=== PATIENT | female | born 1955 | race Caucasian/White ===

== ENCOUNTER 2018-01-31 23:09 | Inpatient (IN) | payer OTHER ==
[~2018-01-31] VITALS: Ht 154.9 cm; Wt 105.4 kg
[~2018-01-31 23:09] MED LIST: AUGMENTIN 875-1 EACH PO
--- NOTE | 2018-01-31 23:47 | ED GI/GU/ABDOMINAL COMPLAINT ---
History of Present Illness General Chief Complaint: Abdominal Pain/Flank Pain Stated Complaint: RIGHT SIDE ABD PAIN, NAUSEA PER PT Source: patient Exam Limitations: no limitations Vital Signs & Intake/Output Vital Signs & Intake/Output Vital Signs Date Time Temp Pulse Resp B/P B/P Pulse O2 O2 Flow FiO2 Mean Ox Delivery Rate 02/01 0319 98.1 72 20 129/59 93 Room Air 01/31 2356 99.1 82 16 160/80 96 ED Intake and Output 02/01 0000 01/31 1200 Intake Total Output Total Balance Patient 250 lb Weight Weight Reported by Patient Measurement Method Allergies Coded Allergies: Sulfa (Sulfonamide Antibiotics) (Intermediate, HIVES 02/22/16) fluticasone (From ADVAIR DISKUS) (Intermediate, PNEUMONIA 02/22/16) lactose (Intermediate, GI UPSET 02/22/16) salmeterol (From ADVAIR DISKUS) (Intermediate, PNEUMONIA 02/22/16) wheat (Intermediate, GI UPSET 02/22/16) pollen extracts (Mild, SINUS ISSUES 02/22/16) Reconcile Medications Amoxicillin/Potassium Clav (Augmentin 875-125 Tablet) 1 EACH TABLET 1 TAB PO BID SINUSITIS Triage Nurses Notes Reviewed? yes ? n Is pt currently ? No Onset: Gradual Duration: day(s): Quality/Severity: dullness, fullness Location: right lower quadrant Radiation: no radiation Activities at Onset: none Prior Abdominal Problems: none Modifying Factors: Worsens With: movement, palpation. Associated Symptoms: nausea/vomiting HPI: 62 yo woman h/o cholecystectomy presents with right lower quadrant pain that began earlier today. "It feels sharp and worse when I press on it... I haven't been able to drink all day... Tonight, I felt warm... I'm worried it might be my appendix." She is otherwise well. Past History Travel History Traveled to [place] past 21 day No Medical History Any Pertinent Medical History? 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 No Review of Systems Review of Systems Constitutional: Reports: no symptoms. EENTM: Reports: no symptoms. Respiratory: Reports: no symptoms. Cardiovascular: Reports: no symptoms. GI: Reports: no symptoms. Genitourinary: Reports: no symptoms. Musculoskeletal: Reports: no symptoms. Skin: Reports: no symptoms. Neurological/Psychological: Reports: no symptoms. Hematologic/Endocrine: Reports: no symptoms. Immunologic/Allergic: Reports: no symptoms. All Other Systems: Reviewed and Negative Physical Exam Physical Exam Gastrointestinal: see below Comments: Physical Exam Physical Exam General Appearance: well developed/nourished, no apparent distress Head: atraumatic, normal appearance Eyes: Bilateral: normal appearance. Ears, Nose, Throat: normal pharynx, normal ENT inspection Neck: normal inspection, supple, full range of motion Respiratory: normal breath sounds, chest non-tender, no respiratory distress, quiet respiration, lungs clear Cardiovascular: regular rate/rhythm Gastrointestinal: normal bowel sounds, soft, mild-moderate right lower quadrant tenderness to palpation. no kaur's sign. no rebound, guarding, organomegaly. Back: normal inspection, normal range of motion Extremities: normal inspection, normal capillary refill, normal range of motion, no edema Neurologic/Psych: no motor/sensory deficits, awake, alert, oriented x 3 Skin: intact, normal color, warm/dry Core Measures ACS in differential dx? No Sepsis Present: No Sepsis Focused Exam Completed? No Progress Differential Diagnosis: UTI/pyelo, diverticulitis vs other. Plan of Care: Orders Procedure Date/time Status Nothing by Mouth 02/02 B Active CBC WITHOUT DIFFERENTIAL 02/02 06 Active BASIC ELECTROLYTES PLUS BUN&CR 02/02 0600 Active Nothing by Mouth 02/01 B Active Pathway - chart 02/01 0200 Active Patient Data 02/01 0200 Active Code Status 02/01 0200 Active Saline Lock 02/01 0146 Active Misc Message 02/01 0146 Active ED Holding Orders 02/01 0146 Active Admit to inpatient 02/01 0146 Active Vital Signs 02/01 0146 Active Code Status 02/01 0146 Complete INCENTIVE SPIROMETRY TRX (GEN) 02/01 UNK Active Admit to inpatient 02/01 UNK Active VTE Mechanical Prophylaxis 02/01 UNK Active Vital Signs 02/01 UNK Active Intake & Output 02/01 UNK Active Activity/Ambulation 02/01 UNK Active URINALYSIS 07/17 2358 Complete TROPONIN LEVEL 01/31 2317 Complete LIPASE 01/31 2317 Complete HEPATIC FUNCTION PANEL 01/31 2317 Complete CBC WITHOUT DIFFERENTIAL 01/31 2317 Complete BASIC METABOLIC PANEL 01/31 2317 Complete AMYLASE 01/31 2317 Complete EKG 01/31 2317 Active Current Medications Sig/Arlen Start time Last Medication Dose Stop Time Status Admin Pantoprazole Sodium 40 MG DAILY 02/01 0900 AC (Protonix) Ampicillin Sodium/ 3,000 MG Q6 02/01 06 AC Sulbactam Sodium (Unasyn) Sodium Chloride 100 ML (Normal Saline 0.9%) Heparin Sodium 5,000 UNIT Q8 02/01 06 AC (Porcine) Morphine Sulfate 2 MG Q3P PRN 02/01 0245 AC (MORPHINE SULFATE) Acetaminophen 1,000 MG Q8P PRN 02/01 0200 AC (Tylenol) Lactated Ringer's 1,000 ML Q8H 02/01 0200 AC (Lactated Ringers) Morphine Sulfate 4 MG Q3P PRN 02/01 0200 AC (MORPHINE SULFATE) Ondansetron HCl 4 MG Q6P PRN 02/01 0200 AC (Zofran) Laboratory Tests 02/01/18 0035: Urinalysis MOD H, Urine Color YEL, Urine Clarity HAZY H, Urine pH 6.5, Ur Specific [place] 1.020, Urine Protein 30 H, Urine Ketones TRACE H, Urine Nitrite NEG, Urine Bilirubin NEG, Urine Urobilinogen 1.0, Ur Leukocyte Esterase SMALL H, Ur Microscopic SEDIMENT EXAMINED, Urine RBC 1-3, Urine WBC 3-5 H, Ur Epithelial Cells MOD H, Urine Bacteria MOD H, Urine Hemoglobin SMALL H, Urine Glucose NEG 02/01/18 0032: Anion Gap 11, Estimated GFR > 60, BUN/Creatinine Ratio 21.3, Glucose 115 H, Calcium 9.0, Total Bilirubin 2.1 H, Direct Bilirubin 0, AST 19, ALT 32, Alkaline Phosphatase 101, Troponin I < 0.01, Total Protein 7.9, Albumin 4.3, Amylase 52, Lipase 65, CBC w Diff NO MAN DIFF REQ, RBC 4.66, MCV 82.4, MCH 28.0, MCHC 34.0, RDW 15.9 H, MPV 7.1 L, Gran % 85.4 H, Lymphocytes % 8.1 L, Monocytes % 5.7, Eosinophils % 0.6, Basophils % 0.2, Absolute Granulocytes 12.5 H, Absolute Lymphocytes 1.2, Absolute Monocytes 0.8 H, Absolute Eosinophils 0.1 , Absolute Basophils 0 01/31/18 3667: D-Dimer High Sensitivty Cancelled Diagnostic Imaging: Viewed by Me: CT Scan. Discussed w/RAD: CT Scan. Radiology Impression: PATIENT: EDDIE HUITRON PRESENT AGE: 62 PATIENT ACCOUNT NO: [id number] : 56 LOCATION: [facility] ORDERING PHYSICIAN: Aba Carrasquillo MD SERVICE DATE: 01/31/18 EXAM TYPE: CAT - CT ABD & PELVIS W/O IV CONTRAS EXAMINATION: CT ABDOMEN AND PELVIS WITHOUT CONTRAST CLINICAL INFORMATION: Right lower quadrant pain COMPARISON: 06/14/2012 TECHNIQUE: Multidetector volumetric imaging was performed from the superior aspect of the liver through the pubic symphysis. Sagittal and coronal reformatted images were obtained on the technologist's workstation. DLP: 892.51 mGy-cm FINDINGS: LUNG BASES: The visualized lung bases are unremarkable. LIVER, GALLBLADDER, AND BILIARY TREE: The liver is normal in size, shape, and attenuation. No focal hepatic lesion or biliary ductal dilatation is present. Patient appears status post cholecystectomy. PANCREAS: Unremarkable. SPLEEN: Unremarkable. ADRENAL GLANDS: Unremarkable. KIDNEYS AND URETERS: The kidneys are normal in size, shape, and attenuation. There is a punctate right mid renal calculus. No hydronephrosis, hydroureter, or obstructing calculi seen. No perinephric stranding. BLADDER: Unremarkable. GASTROINTESTINAL TRACT: There is focal pericolonic inflammation in the ascending colon in the setting of diverticula, most suspicious for acute diverticulitis. There may be a few punctate foci of free air in this region from microperforation. No discrete abscess is seen. No evidence of bowel obstruction. The appendix is partially distended with gas, and there are no findings to suggest acute appendicitis. No free fluid is identified. ABDOMINAL WALL: No significant hernia is appreciated. LYMPH NODES: Normal. VASCULAR: There is mild scattered vascular calcification. PELVIC VISCERA: Unremarkable. OSSEOUS STRUCTURES: There are scattered degenerative changes in the spine. IMPRESSION: 1. Diverticulitis of the ascending colon. A few punctate foci of gas in this region may be extraluminal from microperforation. 2. Punctate right renal calculus without hydronephrosis. DICTATED BY: Franco Mac MD DATE/TIME DICTATED:02/01/1832 HEALTH COACH:WANDY DATE/TIME TRANSCRIBED:02/01/1832 CONFIDENTIAL, DO NOT COPY WITHOUT APPROPRIATE AUTHORIZATION. <Electronically signed in Other Vendor System> SIGNED BY: Franco Mac MD 02/01/1845 Initial ED EKG: sinus, nonspecific st changes, no significant change from prior. Departure Departure Disposition: STILL A PATIENT Condition: Stable Clinical Impression Primary Impression: Diverticulitis of colon with perforation Referrals: Marlen SOTO,Darvin Brian (PCP/Family) Departure Forms: Customer Survey General Discharge Information
--- NOTE | 2018-02-01 00:46 | CT SCAN REPORT ---
EXAMINATION: CT ABDOMEN AND PELVIS WITHOUT CONTRAST CLINICAL INFORMATION: Right lower quadrant pain COMPARISON: 06/14/2012 TECHNIQUE: Multidetector volumetric imaging was performed from the superior aspect of the liver through the pubic symphysis. Sagittal and coronal reformatted images were obtained on the technologist's workstation. DLP: 892.51 mGy-cm FINDINGS: LUNG BASES: The visualized lung bases are unremarkable. LIVER, GALLBLADDER, AND BILIARY TREE: The liver is normal in size, shape, and attenuation. No focal hepatic lesion or biliary ductal dilatation is present. Patient appears status post cholecystectomy. PANCREAS: Unremarkable. SPLEEN: Unremarkable. ADRENAL GLANDS: Unremarkable. KIDNEYS AND URETERS: The kidneys are normal in size, shape, and attenuation. There is a punctate right mid renal calculus. No hydronephrosis, hydroureter, or obstructing calculi seen. No perinephric stranding. BLADDER: Unremarkable. GASTROINTESTINAL TRACT: There is focal pericolonic inflammation in the ascending colon in the setting of diverticula, most suspicious for acute diverticulitis. There may be a few punctate foci of free air in this region from microperforation. No discrete abscess is seen. No evidence of bowel obstruction. The appendix is partially distended with gas, and there are no findings to suggest acute appendicitis. No free fluid is identified. ABDOMINAL WALL: No significant hernia is appreciated. LYMPH NODES: Normal. VASCULAR: There is mild scattered vascular calcification. PELVIC VISCERA: Unremarkable. OSSEOUS STRUCTURES: There are scattered degenerative changes in the spine. IMPRESSION: 1. Diverticulitis of the ascending colon. A few punctate foci of gas in this region may be extraluminal from microperforation. 2. Punctate right renal calculus without hydronephrosis.
[2018-02-01 00:48] LABS: ABSOLUTE BASOPHIL COUNT 0 /CUMM (0.0-0.2); ABSOLUTE EOSINOPHIL COUNT 0.1 /CUMM (0.0-0.7); ABSOLUTE GRANULOCYTE CT 12.5 /CUMM (1.4-6.5); ABSOLUTE LYMPH COUNT 1.2 /CUMM (1.2-3.4); ABSOLUTE MONOCYTE COUNT 0.8 /CUMM (0.10-0.60); BASOPHIL % 0.2 % (0.0-2.0); EOSINOPHIL % 0.6 % (0-5); HEMATOCRIT 38.4 % (37-47); MEAN CORPUSCULAR VOLUME 82.4 FL (81.0-99.0); MEAN PLATELET VOLUME 7.1 FL (7.4-10.4); PLATELET COUNT 199 /CUMM (130-400); RBC DISTRIBUTION WIDTH 15.9 % (11.5-14.5); RED BLOOD CELL CT 4.66 /CUMM (4.20-5.40); WHITE BLOOD CELL COUNT 14.6 /CUMM (4.8-10.8)
[2018-02-01 01:20] LABS: GRANULOCYTE % 85.4 % (42.2-75.2)
--- NOTE | 2018-02-01 02:21 | History & Physical ---
Ashanti Aldridge 02/01/18 0221: General Information and HPI Source of Information: patient Exam Limitations: no limitations History of Present Illness: This is a 62-year-old female with a past medical history significant for asthma, psoriasis, mitral valve prolapse, hypertension, hypothyroidism, and venous insufficiency who presents to the emergency department with a chief complaint of right mid quadrant abdominal pain. Patient reports he she's been more fatigued than usual over the last 48 hours and then started with abdominal pain yesterday which increased over the course the day and she then developed fevers. Upon talking to her coworker she suggested she get evaluated as she had had similar symptoms with appendicitis. Patient reports fevers, chills and nausea, and denies vomiting, constipation, diarrhea, sick contacts, or recent travel. She reports that she might have had similar symptoms in the past as she's had pain in this area previously but it always spontaneously resolved. Allergies/Medications Allergies: Coded Allergies: Sulfa (Sulfonamide Antibiotics) (Intermediate, HIVES 02/22/16) fluticasone (From ADVAIR DISKUS) (Intermediate, PNEUMONIA 02/22/16) lactose (Intermediate, GI UPSET 02/22/16) salmeterol (From ADVAIR DISKUS) (Intermediate, PNEUMONIA 02/22/16) wheat (Intermediate, GI UPSET 02/22/16) pollen extracts (Mild, SINUS ISSUES 02/22/16) Past History Travel History Traveled to [place] past 21 day No Medical History Neurological: NONE EENT: NONE Cardiovascular: hypertension, MVP Respiratory: asthma Gastrointestinal: NONE Hepatic: FATTY LIVER Renal: NONE Musculoskeletal: PSORIASIS ?ARTHRITIS Psychiatric: NONE Endocrine: hypothyroidism Blood Disorders: NONE Cancer(s): NONE 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 Review of Systems Review of Systems Constitutional: Reports: see HPI. Exam & Diagnostic Data Last 24 Hrs of Vital Signs/I&O Vital Signs Date Time Temp Pulse Resp B/P B/P Pulse O2 O2 Flow FiO2 Mean Ox Delivery Rate 01/31 2356 99.1 82 16 160/80 96 Intake & Output 02/01 0800 02/01 0000 01/31 1600 Intake Total Output Total Balance Patient 250 lb Weight Weight Reported by Patient Measurement Method Physical Exam General Appearance Alert, No Acute Distress Abdomen Soft, No Masses, TTP in the right mid quadrant, w/o R/G Extremities No Clubbing, No Cyanosis, No Edema Last 24 Hrs of Labs/Eduin: Laboratory Tests 02/01/18 0035: Urinalysis MOD H, Urine Color YEL, Urine Clarity HAZY H, Urine pH 6.5, Ur Specific [place] 1.020, Urine Protein 30 H, Urine Ketones TRACE H, Urine Nitrite NEG, Urine Bilirubin NEG, Urine Urobilinogen 1.0, Ur Leukocyte Esterase SMALL H, Ur Microscopic SEDIMENT EXAMINED, Urine RBC 1-3, Urine WBC 3-5 H, Ur Epithelial Cells MOD H, Urine Bacteria MOD H, Urine Hemoglobin SMALL H, Urine Glucose NEG 02/01/18 0032: Anion Gap 11, Estimated GFR > 60, BUN/Creatinine Ratio 21.3, Glucose 115 H, Calcium 9.0, Total Bilirubin 2.1 H, Direct Bilirubin 0, AST 19, ALT 32, Alkaline Phosphatase 101, Troponin I < 0.01, Total Protein 7.9, Albumin 4.3, Amylase 52, Lipase 65, CBC w Diff NO MAN DIFF REQ, RBC 4.66, MCV 82.4, MCH 28.0, MCHC 34.0, RDW 15.9 H, MPV 7.1 L, Gran % 85.4 H, Lymphocytes % 8.1 L, Monocytes % 5.7, Eosinophils % 0.6, Basophils % 0.2, Absolute Granulocytes 12.5 H, Absolute Lymphocytes 1.2, Absolute Monocytes 0.8 H, Absolute Eosinophils 0.1 , Absolute Basophils 0 01/31/18 2317: D-Dimer High Sensitivty Cancelled Diagnostic Data Other Results CT ABDOMEN AND PELVIS WITHOUT CONTRAST CLINICAL INFORMATION: Right lower quadrant pain COMPARISON: 06/14/2012 TECHNIQUE: Multidetector volumetric imaging was performed from the superior aspect of the liver through the pubic symphysis. Sagittal and coronal reformatted images were obtained on the technologist's workstation. DLP: 892.51 mGy-cm FINDINGS: LUNG BASES: The visualized lung bases are unremarkable. LIVER, GALLBLADDER, AND BILIARY TREE: The liver is normal in size, shape, and attenuation. No focal hepatic lesion or biliary ductal dilatation is present. Patient appears status post cholecystectomy. PANCREAS: Unremarkable. SPLEEN: Unremarkable. ADRENAL GLANDS: Unremarkable. KIDNEYS AND URETERS: The kidneys are normal in size, shape, and attenuation. There is a punctate right mid renal calculus. No hydronephrosis, hydroureter, or obstructing calculi seen. No perinephric stranding. BLADDER: Unremarkable. GASTROINTESTINAL TRACT: There is focal pericolonic inflammation in the ascending colon in the setting of diverticula, most suspicious for acute diverticulitis. There may be a few punctate foci of free air in this region from microperforation. No discrete abscess is seen. No evidence of bowel obstruction. The appendix is partially distended with gas, and there are no findings to suggest acute appendicitis. No free fluid is identified. ABDOMINAL WALL: No significant hernia is appreciated. LYMPH NODES: Normal. VASCULAR: There is mild scattered vascular calcification. PELVIC VISCERA: Unremarkable. OSSEOUS STRUCTURES: There are scattered degenerative changes in the spine. IMPRESSION: 1. Diverticulitis of the ascending colon. A few punctate foci of gas in this region may be extraluminal from microperforation. 2. Punctate right renal calculus without hydronephrosis. Assessment/Plan Assessment: This is a 62-year-old female with a past medical history significant for asthma, psoriasis, mitral valve prolapse, hypertension, hypothyroidism, and venous insufficiency who presents to the emergency department with a chief complaint of right mid quadrant abdominal pain. Workup was obtained and reveals acute microperforated diverticulitis. She has been admitted to the surgical service under the care of Dr. Steinberg. She's been made nothing by mouth and placed on IV fluids as well as antibiotics in the form of Unasyn. I have encouraged ambulation, incentive spirometry, and turn, cough, and deep breathing techniques. She is ordered for when necessary analgesia and antiemetics at this time as well as GI and DVT prophylaxis. Her home medications be placed on hold while she is nothing by mouth. Case will be discussed with Dr. Steinberg to make sure he is in agreement with plan of care. As Ranked By This Provider Problem List: 1. Diverticulitis Core Measures/Misc (04/03) Acute Coronary Syndrome ACS Diagnosis: No Congestive Heart Failure Congestive Heart Failure Diagnosis No Cerebrovascular Accident CVA/TIA Diagnosis: No VTE (View Protocol) VTE Risk Factors No risk factors No Mechanical VTE Prophylaxis d/t N/A MechProphylax Ordered No VTE Pharm Prophylaxis d/t NA PharmProphylax ordered Sepsis (View protocol) Sepsis Present: No If YES complete Sepsis Event Note If YES complete Sepsis Event Note Jesús Steinberg DO 02/01/18 7374: General Information and HPI Allergies/Medications Home Med list Amoxicillin/Potassium Clav (Augmentin 875-125 Tablet) 1 EACH TABLET 1 TAB PO BID SINUSITIS Furosemide 20 MG TABLET 1 TAB PO DAILY DIURETIC (Reported) Levothyroxine Sodium (Synthroid) 300 MCG TABLET 1 TAB PO DAILY HYPOTHYROIDISM (Reported) Core Measures/Misc (04/03) Sepsis (View protocol) If YES complete Sepsis Event Note If YES complete Sepsis Event Note Attending MD Review Statement Attending Statement Attending MD Statement: examined this patient, discuss w/resident/PA/COMMERCIAL PEST CONTROL REPRESENTATIVE, agreed w/resident/PA/COMMERCIAL PEST CONTROL REPRESENTATIVE, reviewed EMR data (avail), reviewed images Attending Assessment/Plan: Patient seen and examined, agree with above. Right sided abdominal pain for a couple of days, got more severe, came to the ER. Tm 100 VSS. Abd-soft, right sided tenderness, with localized voluntary guarding. WBC 14-15. CT scan - c/w ascending colon diverticulitis with ?extraluminal droplets of air. NPO/IVF/IV Abx, Repeat labs, serial abd exams, patient had colonoscopy ~10 years and will need one once this episode improves, conservative management for now.
--- NOTE | 2018-02-01 02:23 | Admission Core Measures ---
Acute Coronary Syndrome (CM) ACS Core Measures Acute Coronary Syndrome Diagnosis No Congestive Heart Failure (NEW) CHF Core Measures Congestive Heart Failure Diagnosis No Cerebrovascular Accident CVA Core Measures CVA/TIA Diagnosis No Venous Thromboembolism VTE Core Suzette (View Protocol) VTE Risk Factors No risk factors No Mechanical VTE Prophylaxis d/t N/A MechProphylax Ordered No VTE Pharm Prophylaxis d/t NA PharmProphylax ordered Problem List As ranked by this Provider includes Assessment & Plan 1. Diverticulitis HOME MEDS Home Med List Amoxicillin/Potassium Clav (Augmentin 875-125 Tablet) 1 EACH TABLET 1 TAB PO BID SINUSITIS
[2018-02-01] MEDS ORDERED: SYNTHROID300 MCG PO (04:50)
[2018-02-01] MEDS ORDERED: FUROSEMIDE20 M1 PO (04:50)
[2018-02-01 06:28] VITALS: BP 130/80
--- NOTE | 2018-02-01 11:14 | PN- General Surgery ---
Subjective Subjective: Reports right upper abdominal discomfort. She believes shes had prior episodes in the past, and believed it had something to do with her prior gallbladder removal. Denies nausea at the moment. Repeat labs currently being drawn. Mild temp 100 noted this morning. Antibiotics changed from iv unasyn to iv rocephin / flagyl. Objective Vital Signs and I&Os Vital Signs Date Time Temp Pulse Resp B/P B/P Pulse O2 O2 Flow FiO2 Mean Ox Delivery Rate 02/01 0628 100.0 68 20 130/80 97 Room Air 02/01 0449 97.0 62 18 143/72 96 Room Air 02/01 0319 98.1 72 20 129/59 93 Room Air 01/31 2356 99.1 82 16 160/80 96 Intake & Output 02/01 1600 02/01 0800 02/01 0000 01/31 1600 01/31 0800 01/31 0000 Intake Total Output Total Balance Patient 230 lb 250 lb Weight Weight Bed scale Reported by Patient Measurement Method Physical Exam: General - alert & oriented x 3. comfortable. no acute distress. Lungs - clear bilaterally. no w/r/r. Cardiac - s1s2. reg. soft systolic murmur appreciated. Abdomen - obese. soft. tenderness localized to right upper quadrant and epigastric region. no evidence of peritonitis. Extremities - warm bilaterally. no c/c/e. calves soft and nontender b/l. Current Medications: Current Medications Sig/Arlen Start time Last Medication Dose Route Stop Time Status Admin Acetaminophen 1,000 MG Q8P PRN 02/01 0200 AC PO Acetaminophen 0 .STK-MED ONE 02/01 0010 DC IV Acetaminophen 1,000 MG ONCE ONE 01/31 2345 DC 02/01 N/A 1 UNIT IV 01/31 2359 0036 Ampicillin Sodium/ 3,000 MG Q6H 02/01 0900 DC 02/01 Sulbactam Sodium IV 1017 Sodium Chloride 100 ML Ampicillin Sodium/ 3,000 MG Q6 02/01 0600 DC Sulbactam Sodium IV Sodium Chloride 100 ML Ampicillin Sodium/ 0 .STK-MED ONE 02/01 0146 DC Sulbactam Sodium .ROUTE Ampicillin Sodium/ 3,000 MG ONCE ONE 02/01 0100 DC 02/01 Sulbactam Sodium IV 02/01 0129 0245 Sodium Chloride 100 ML Ceftriaxone Sodium 2,000 MG Q12H 02/01 1200 AC IV Heparin Sodium 5,000 UNIT Q8 02/01 0600 AC 02/01 (Porcine) SC 0603 Ketorolac 0 .STK-MED ONE 02/01 0010 DC Tromethamine .ROUTE Ketorolac 30 MG ONCE ONE 01/31 2345 DC 02/01 Tromethamine IV 01/31 234 0036 Lactated Ringer's 1,000 ML Q8H 02/01 0200 AC 02/01 IV 0341 Metronidazole 500 MG IQ8 02/01 1100 AC N/A 1 UNIT IV Morphine Sulfate 2 MG Q3P PRN 02/01 0245 AC 02/01 IV 1016 Morphine Sulfate 2 MG Q3P PRN 02/01 0200 DC IV Morphine Sulfate 4 MG Q3P PRN 02/01 0200 AC IV Ondansetron HCl 4 MG Q6P PRN 02/01 0200 AC IV Ondansetron HCl 0 .STK-MED ONE 02/01 0010 DC .ROUTE Ondansetron HCl 4 MG ONCE ONE 01/31 2345 DC 02/01 IV 01/31 234 0036 Pantoprazole Sodium 40 MG DAILY 02/01 0900 AC 02/01 IV 1016 Sodium Chloride 1,000 ML BOLUS ONE 01/31 2345 DC 02/01 IV 02/01 0044 0036 Results Last 48 Hours of Labs: Laboratory Tests 02/01 02/01 0035 0032 Chemistry Sodium (137 - 145 mmol/L) 138 Potassium (3.5 - 5.1 mmol/L) 3.9 Chloride (98 - 107 mmol/L) 96 L Carbon Dioxide (22 - 30 mmol/L) 31 H Anion Gap (5 - 16) 11 BUN (7 - 17 mg/dL) 17 Creatinine (0.5 - 1.0 mg/dL) 0.8 Estimated GFR (>60 ml/min) > 60 BUN/Creatinine Ratio (7 - 25 %) 21.3 Glucose (65 - 99 mg/dL) 115 H Calcium (8.4 - 10.2 mg/dL) 9.0 Total Bilirubin (0.2 - 1.3 mg/dL) 2.1 H Direct Bilirubin (< 0.4 mg/dL) 0 AST (14 - 36 U/L) 19 ALT (9 - 52 U/L) 32 Alkaline Phosphatase (<127 U/L) 101 Troponin I (< 0.11 ng/ml) < 0.01 Total Protein (6.3 - 8.2 g/dL) 7.9 Albumin (3.5 - 5.0 g/dL) 4.3 Amylase (30 - 110 U/L) 52 Lipase (23 - 300 U/L) 65 Hematology CBC w Diff NO MAN DIFF REQ WBC (4.8 - 10.8 /CUMM) 14.6 H RBC (4.20 - 5.40 /CUMM) 4.66 Hgb (12.0 - 16.0 G/DL) 13.0 Hct (37 - 47 %) 38.4 MCV (81.0 - 99.0 FL) 82.4 MCH (27.0 - 31.0 PG) 28.0 MCHC (33.0 - 37.0 G/DL) 34.0 RDW (11.5 - 14.5 %) 15.9 H Plt Count (130 - 400 /CUMM) 199 MPV (7.4 - 10.4 FL) 7.1 L Gran % (42.2 - 75.2 %) 85.4 H Lymphocytes % (20.5 - 51.1 %) 8.1 L Monocytes % (1.7 - 9.3 %) 5.7 Eosinophils % (0 - 5 %) 0.6 Basophils % (0.0 - 2.0 %) 0.2 Absolute Granulocytes (1.4 - 6.5 /CUMM) 12.5 H Absolute Lymphocytes (1.2 - 3.4 /CUMM) 1.2 Absolute Monocytes (0.10 - 0.60 /CUMM) 0.8 H Absolute Eosinophils (0.0 - 0.7 /CUMM) 0.1 Absolute Basophils (0.0 - 0.2 /CUMM) 0 Urines Urinalysis MOD H Urine Color (YEL,AMB,STR) YEL Urine Clarity (CLEAR) HAZY H Urine pH (5.0 - 8.0) 6.5 Ur Specific [place] (1.001 - 1.035) 1.020 Urine Protein (NEG,<30 MG/DL) 30 H Urine Ketones (NEG) TRACE H Urine Nitrite (NEG) NEG Urine Bilirubin (NEG) NEG Urine Urobilinogen (0.1 - 1.0 EU/dl) 1.0 Ur Leukocyte Esterase (NEG) SMALL H Ur Microscopic SEDIMENT EXAMINED Urine RBC (0 - 5 /HPF) 1-3 Urine WBC (0 - 2 /HPF) 3-5 H Ur Epithelial Cells (NONE,FEW) MOD H Urine Bacteria (NEG/NONE) MOD H Urine Hemoglobin (NEG) SMALL H Urine Glucose (N MG/DL) NEG 01/31 0997 Coagulation D-Dimer High Sensitivty Cancelled Assessment/Plan Assessment/Plan This 62-year-old female with pmh significant for asthma, psoriasis, mitral valve prolapse, hypertension, hypothyroidism, and venous insufficiency, who is admitted for acute diverticulitis of ascending colon npo / ivf iv rocephin / flagyl f/u labs hep sc - dvt ppx nutrition consult to review dietary modifications serial exams will d/w Core Measures Venous Thromboembolism VTE Risk Factors No risk factors No Mechanical VTE Prophylaxis d/t N/A MechProphylax Ordered No VTE Pharm Prophylaxis d/t NA PharmProphylax ordered
[2018-02-01 11:50] LABS: ABSOLUTE BASOPHIL COUNT 0.1 /CUMM (0.0-0.2); ABSOLUTE EOSINOPHIL COUNT 0.1 /CUMM (0.0-0.7); ABSOLUTE GRANULOCYTE CT 13.6 /CUMM (1.4-6.5); ABSOLUTE LYMPH COUNT 1.2 /CUMM (1.2-3.4); ABSOLUTE MONOCYTE COUNT 0.7 /CUMM (0.10-0.60); BASOPHIL % 0.3 % (0.0-2.0); EOSINOPHIL % 0.6 % (0-5); GRANULOCYTE % 86.9 % (42.2-75.2); HEMATOCRIT 35.5 % (37-47); MEAN CORPUSCULAR HGB CONC 33.3 G/DL (33.0-37.0); MEAN PLATELET VOLUME 7.7 FL (7.4-10.4); PLATELET COUNT 148 /CUMM (130-400); RBC DISTRIBUTION WIDTH 16.4 % (11.5-14.5); RED BLOOD CELL CT 4.22 /CUMM (4.20-5.40); WHITE BLOOD CELL COUNT 15.6 /CUMM (4.8-10.8)
[2018-02-01 14:13] VITALS: BP 142/70
[2018-02-01 22:38] VITALS: BP 138/80
[2018-02-02 06:10] VITALS: BP 160/86
[2018-02-02 06:54] VITALS: BP 170/86
[2018-02-02 07:00] VITALS: BP 160/86
--- NOTE | 2018-02-02 07:41 | PN- General Surgery ---
See Addendum Subjective Subjective: Reports slightly improved right sided abdominal discomfort. She did have an episode of nausea and vomiting this morning, which is associates with taking tylenol and her synthroid at the same time. She has ongoing diarrhea and is passing some gas. Voiding without difficulty. Some chills. Fever of 101 this morning. No dizziness. No shortness of breath. No chest pains. Objective Vital Signs and I&Os Vital Signs Date Time Temp Pulse Resp B/P B/P Pulse O2 O2 Flow FiO2 Mean Ox Delivery Rate 02/02 0654 100.9 95 20 170/86 93 Room Air 02/02 0527 101.0 02/01 2238 99.4 88 18 138/80 98 Room Air 02/01 1945 98 Room Air 02/01 1413 98.8 85 18 142/70 97 02/01 1358 Room Air Room Air Intake & Output 02/02 0800 02/02 0000 02/01 1600 02/01 0800 02/01 0000 01/31 1600 Intake Total 900 1000 Output Total 450 500 Balance 450 500 Intake, IV 900 1000 Output, Urine 450 500 Patient 230 lb 250 lb Weight Weight Bed scale Reported by Patient Measurement Method Physical Exam: General - alert & oriented x 3. comfortable. no acute distress. Lungs - clear bilaterally. no w/r/r Cardiac - s1s2. reg. soft systolic murmur appreciated. Abdomen - obese. ongoing right upper quadrant / flank tenderness. not diffusely tender. Extremities - warm bilaterally. no c/c/e. calves soft and nontender b/l. athrombics in place. Current Medications: Current Medications Sig/Arlen Start time Last Medication Dose Route Stop Time Status Admin Acetaminophen 1,000 MG .STK-MED ONE 02/01 1343 DC IV 02/01 1344 Acetaminophen 1,000 MG Q8P PRN 02/01 0200 02/02 PO 0527 Albuterol Sulfate 3 ML Q4P PRN 02/01 1415 AC 02/01 INH 1945 Ampicillin Sodium/ 3,000 MG Q6H 02/01 0900 DC 02/01 Sulbactam Sodium IV 1017 Sodium Chloride 100 ML Ceftriaxone Sodium 2,000 MG Q12H 02/01 1200 AC 02/01 IV 2359 Heparin Sodium 5,000 UNIT Q8 02/01 0600 AC 02/02 (Porcine) SC 0526 Lactated Ringer's 1,000 ML Q8H 02/01 0200 DC 02/01 IV 1251 Levothyroxine Sodium 0.3 MG DAILY AC 02/02 0700 CAN PO Levothyroxine Sodium 0.3 MG DAILY AC 02/02 0700 AC 02/02 PO 0527 Metronidazole 500 MG Q8H 02/01 2200 AC 02/02 N/A 1 UNIT IV 0526 Metronidazole 500 MG IQ8 02/01 1100 DC 02/01 N/A 1 UNIT IV 1343 Morphine Sulfate 2 MG Q3P PRN 02/01 0245 AC 02/01 IV 1016 Morphine Sulfate 4 MG Q3P PRN 02/01 0200 AC 02/01 IV 2359 Ondansetron HCl 4 MG Q6P PRN 02/01 0200 02/02 IV 0611 Pantoprazole Sodium 40 MG DAILY 02/01 0900 AC 02/01 IV 1016 Potassium Chloride 20 MEQ CONTINOUS INFUSION 02/01 1530 AC 02/02 Dextrose/Sodium 1,000 ML IV 0534 Chloride Potassium Chloride 20 MEQ CONTINOUS INFUSION 02/01 1400 DC IV Results Last 48 Hours of Labs: Laboratory Tests 02/02 02/01 02/01 0639 1257 UNK Chemistry Sodium (137 - 145 mmol/L) 141 Potassium (3.5 - 5.1 mmol/L) 3.7 Chloride (98 - 107 mmol/L) 101 Carbon Dioxide (22 - 30 mmol/L) 28 Anion Gap (5 - 16) 11 BUN (7 - 17 mg/dL) 15 Creatinine (0.5 - 1.0 mg/dL) 0.6 Estimated GFR (>60 ml/min) > 60 BUN/Creatinine Ratio (7 - 25 %) 25.0 Hematology CBC w Diff Pending MAN DIFF ORDERED WBC (4.8 - 10.8 /CUMM) Pending 15.6 H RBC (4.20 - 5.40 /CUMM) Pending 4.22 Hgb (12.0 - 16.0 G/DL) Pending 11.8 L Hct (37 - 47 %) Pending 35.5 L MCV (81.0 - 99.0 FL) Pending 84.0 MCH (27.0 - 31.0 PG) Pending 28.0 MCHC (33.0 - 37.0 G/DL) Pending 33.3 RDW (11.5 - 14.5 %) Pending 16.4 H Plt Count (130 - 400 /CUMM) Pending 148 MPV (7.4 - 10.4 FL) Pending 7.7 Gran % (42.2 - 75.2 %) 86.9 H Lymphocytes % (20.5 - 51.1 %) 7.7 L Monocytes % (1.7 - 9.3 %) 4.5 Eosinophils % (0 - 5 %) 0.6 Basophils % (0.0 - 2.0 %) 0.3 Absolute Granulocytes (1.4 - 6.5 /CUMM) 13.6 H Segmented Neutrophils (42.2 - 75.2 %) 72 Band Neutrophils (0.0 - 5.0 %) 11 H Absolute Lymphocytes (1.2 - 3.4 /CUMM) 1.2 Lymphocytes (20.5 - 51.1 %) 9 L Monocytes (1.7 - 9.3 %) 6 Absolute Monocytes (0.10 - 0.60 /CUMM) 0.7 H Eosinophils (0 - 5.0 %) 2 Absolute Eosinophils (0.0 - 0.7 /CUMM) 0.1 Absolute Basophils (0.0 - 0.2 /CUMM) 0.1 Platelet Estimate (ADEQUATE) ADEQUATE Hypochromic-Microcytic 1+ Anisocytosis 1+ 02/01 02/01 0035 0032 Chemistry Sodium (137 - 145 mmol/L) 138 Potassium (3.5 - 5.1 mmol/L) 3.9 Chloride (98 - 107 mmol/L) 96 L Carbon Dioxide (22 - 30 mmol/L) 31 H Anion Gap (5 - 16) 11 BUN (7 - 17 mg/dL) 17 Creatinine (0.5 - 1.0 mg/dL) 0.8 Estimated GFR (>60 ml/min) > 60 BUN/Creatinine Ratio (7 - 25 %) 21.3 Glucose (65 - 99 mg/dL) 115 H Calcium (8.4 - 10.2 mg/dL) 9.0 Total Bilirubin (0.2 - 1.3 mg/dL) 2.1 H Direct Bilirubin (< 0.4 mg/dL) 0 AST (14 - 36 U/L) 19 ALT (9 - 52 U/L) 32 Alkaline Phosphatase (<127 U/L) 101 Troponin I (< 0.11 ng/ml) < 0.01 Total Protein (6.3 - 8.2 g/dL) 7.9 Albumin (3.5 - 5.0 g/dL) 4.3 Amylase (30 - 110 U/L) 52 Lipase (23 - 300 U/L) 65 Hematology CBC w Diff NO MAN DIFF REQ WBC (4.8 - 10.8 /CUMM) 14.6 H RBC (4.20 - 5.40 /CUMM) 4.66 Hgb (12.0 - 16.0 G/DL) 13.0 Hct (37 - 47 %) 38.4 MCV (81.0 - 99.0 FL) 82.4 MCH (27.0 - 31.0 PG) 28.0 MCHC (33.0 - 37.0 G/DL) 34.0 RDW (11.5 - 14.5 %) 15.9 H Plt Count (130 - 400 /CUMM) 199 MPV (7.4 - 10.4 FL) 7.1 L Gran % (42.2 - 75.2 %) 85.4 H Lymphocytes % (20.5 - 51.1 %) 8.1 L Monocytes % (1.7 - 9.3 %) 5.7 Eosinophils % (0 - 5 %) 0.6 Basophils % (0.0 - 2.0 %) 0.2 Absolute Granulocytes (1.4 - 6.5 /CUMM) 12.5 H Absolute Lymphocytes (1.2 - 3.4 /CUMM) 1.2 Absolute Monocytes (0.10 - 0.60 /CUMM) 0.8 H Absolute Eosinophils (0.0 - 0.7 /CUMM) 0.1 Absolute Basophils (0.0 - 0.2 /CUMM) 0 Urines Urinalysis MOD H Urine Color (YEL,AMB,STR) YEL Urine Clarity (CLEAR) HAZY H Urine pH (5.0 - 8.0) 6.5 Ur Specific [place] (1.001 - 1.035) 1.020 Urine Protein (NEG,<30 MG/DL) 30 H Urine Ketones (NEG) TRACE H Urine Nitrite (NEG) NEG Urine Bilirubin (NEG) NEG Urine Urobilinogen (0.1 - 1.0 EU/dl) 1.0 Ur Leukocyte Esterase (NEG) SMALL H Ur Microscopic SEDIMENT EXAMINED Urine RBC (0 - 5 /HPF) 1-3 Urine WBC (0 - 2 /HPF) 3-5 H Ur Epithelial Cells (NONE,FEW) MOD H Urine Bacteria (NEG/NONE) MOD H Urine Hemoglobin (NEG) SMALL H Urine Glucose (N MG/DL) NEG 01/31 2317 Coagulation D-Dimer High Sensitivty Cancelled Assessment/Plan Assessment/Plan This 62-year-old female with pmh significant for asthma, psoriasis, mitral valve prolapse, hypertension, hypothyroidism, and venous insufficiency, who is admitted for acute diverticulitis of ascending colon, fever 101 this morning with episode of nausea/vomiting npo / ivf iv rocephin / flagyl f/u labs hep sc - dvt ppx nutrition consult to review dietary modifications serial exams will d/w Core Measures Venous Thromboembolism VTE Risk Factors No risk factors No Mechanical VTE Prophylaxis d/t N/A MechProphylax Ordered No VTE Pharm Prophylaxis d/t NA PharmProphylax ordered
[2018-02-02 08:32] LABS: ABSOLUTE BASOPHIL COUNT 0 /CUMM (0.0-0.2); ABSOLUTE EOSINOPHIL COUNT 0 /CUMM (0.0-0.7); ABSOLUTE GRANULOCYTE CT 9.6 /CUMM (1.4-6.5); ABSOLUTE LYMPH COUNT 0.8 /CUMM (1.2-3.4); ABSOLUTE MONOCYTE COUNT 0.9 /CUMM (0.10-0.60); BASOPHIL % 0.1 % (0.0-2.0); EOSINOPHIL % 0.4 % (0-5); HEMATOCRIT 31.7 % (37-47); MEAN CORPUSCULAR HGB 27.7 PG (27.0-31.0); MEAN CORPUSCULAR HGB CONC 33.2 G/DL (33.0-37.0); MEAN CORPUSCULAR VOLUME 83.3 FL (81.0-99.0); MEAN PLATELET VOLUME 7.4 FL (7.4-10.4); PLATELET COUNT 162 /CUMM (130-400); RBC DISTRIBUTION WIDTH 16.3 % (11.5-14.5); RED BLOOD CELL CT 3.81 /CUMM (4.20-5.40); WHITE BLOOD CELL COUNT 11.3 /CUMM (4.8-10.8)
[2018-02-02 09:20] LABS: GRANULOCYTE % 84.8 % (42.2-75.2)
[2018-02-02 14:46] VITALS: BP 130/80
[2018-02-02 22:12] VITALS: BP 124/70; BP 152/78
[2018-02-02 22:18] VITALS: BP 152/78
[2018-02-03 04:37] VITALS: BP 204/92
[2018-02-03 06:46] VITALS: BP 160/83
--- NOTE | 2018-02-03 07:43 | PN- General Surgery ---
See Addendum Subjective Subjective: Reports slowing improving right sided pain. Mostly reporting ongoing headache. Restarted lasix for hypertension. No fevers noted in the last 24 hours. Voiding well. Passing flatus and +loose stool. Objective Vital Signs and I&Os Vital Signs Date Time Temp Pulse Resp B/P B/P Pulse O2 O2 Flow FiO2 Mean Ox Delivery Rate 02/03 0646 98.1 68 20 160/83 90 Room Air 02/03 0437 68 204/92 02/02 2218 97.7 66 18 152/78 92 02/02 2212 97.7 66 18 152/78 94 02/02 1941 94 Room Air 02/02 1446 98.4 74 22 130/80 98 02/02 1314 95 Room Air 02/02 0745 99.5 Intake & Output 02/03 0800 02/03 0000 02/02 1600 02/02 0800 02/02 0000 02/01 1600 Intake Total 5876 695 4075 4691 737 4126 Output Total 500 450 500 Balance 0780 996 2655 500 450 500 Intake, IV 1000 1000 5336 537 4486 Intake, Oral 120 120 100 0 Number 3 1 Bowel Movements Output, Urine 500 450 500 Patient 246 lb 229 lb Weight Weight Bed scale Measurement Method Physical Exam: General - alert & oriented x 3. comfortable. no acute distress. Lungs - clear bilaterally. no w/r/r. Cardiac - s1s2. reg. soft systolic murmur appreciated. Abdomen - soft. improving right upper quadrant tenderness. bowel sounds appreciated Extremities - warm bilaterally. no c/c/e. calves soft and nontender b/l. Current Medications: Current Medications Sig/Arlen Start time Last Medication Dose Route Stop Time Status Admin Acetaminophen 1,000 MG Q6 02/03 1200 UNVr N/A 1 UNIT IV Acetaminophen 1,000 MG Q6P PRN 02/02 1530 DC N/A 1 UNIT IV Acetaminophen 1,000 MG Q8P PRN 02/01 0200 DC 02/02 PO 0527 Albuterol Sulfate 3 ML Q4P PRN 02/01 1415 AC 02/02 INH 1940 Ceftriaxone Sodium 2,000 MG Q12H 02/01 1200 AC 02/02 IV 2350 Dexamethasone 8 MG ONCE ONE 02/03 0500 DC Dextrose/Water 50 ML IV 02/03 0531 Dextrose/Sodium 1,000 ML Q13H 02/03 0445 DC Chloride IV Dextrose/Sodium 1,000 ML Q13H 02/03 0445 DC Chloride IV Furosemide 40 MG ONCE ONE 02/03 0445 DC 02/03 PO 02/03 0446 0516 Heparin Sodium 5,000 UNIT Q8 02/01 0600 02/03 (Porcine) SC 0517 Ketorolac 30 MG Q6P PRN 02/03 0745 AC Tromethamine IV Levothyroxine Sodium 0.3 MG DAILY AC 02/02 0700 AC 02/03 PO 0518 Metronidazole 500 MG Q8H 02/01 2200 02/03 N/A 1 UNIT IV 0517 Morphine Sulfate 2 MG Q3P PRN 02/01 0245 AC 02/02 IV 2219 Morphine Sulfate 4 MG Q3P PRN 02/01 0200 02/01 IV 2359 Ondansetron HCl 4 MG Q6P PRN 02/01 0200 02/03 IV 0521 Pantoprazole Sodium 40 MG DAILY 02/02 0900 AC 02/02 IV 1043 Pantoprazole Sodium 40 MG DAILY 02/01 09 MN 02/01 IV 1016 Patient Medication 1 ED ONE ONE 02/02 1830 MN Teaching ED 02/02 1831 Potassium Chloride 20 MEQ Q13H 02/03 0515 02/03 Dextrose/Sodium 1,000 ML IV 0518 Chloride Potassium Chloride 20 MEQ CONTINOUS INFUSION 02/01 1530 MN 02/02 Dextrose/Sodium 1,000 ML IV 0534 Chloride Results Last 48 Hours of Labs: Laboratory Tests 02/02 02/02 02/01 UNK 0639 1257 Chemistry Sodium (137 - 145 mmol/L) 140 141 Potassium (3.5 - 5.1 mmol/L) 3.9 3.7 Chloride (98 - 107 mmol/L) 102 101 Carbon Dioxide (22 - 30 mmol/L) 26 28 Anion Gap (5 - 16) 11 11 BUN (7 - 17 mg/dL) 15 15 Creatinine (0.5 - 1.0 mg/dL) 0.6 0.6 Estimated GFR (>60 ml/min) > 60 > 60 BUN/Creatinine Ratio (7 - 25 %) 25.0 25.0 Hematology CBC w Diff NO MAN DIFF REQ WBC (4.8 - 10.8 /CUMM) 11.3 H RBC (4.20 - 5.40 /CUMM) 3.81 L Hgb (12.0 - 16.0 G/DL) 10.5 L Hct (37 - 47 %) 31.7 L MCV (81.0 - 99.0 FL) 83.3 MCH (27.0 - 31.0 PG) 27.7 MCHC (33.0 - 37.0 G/DL) 33.2 RDW (11.5 - 14.5 %) 16.3 H Plt Count (130 - 400 /CUMM) 162 MPV (7.4 - 10.4 FL) 7.4 Gran % (42.2 - 75.2 %) 84.8 H Lymphocytes % (20.5 - 51.1 %) 6.8 L Monocytes % (1.7 - 9.3 %) 7.9 Eosinophils % (0 - 5 %) 0.4 Basophils % (0.0 - 2.0 %) 0.1 Absolute Granulocytes (1.4 - 6.5 /CUMM) 9.6 H Absolute Lymphocytes (1.2 - 3.4 /CUMM) 0.8 L Absolute Monocytes (0.10 - 0.60 /CUMM) 0.9 H Absolute Eosinophils (0.0 - 0.7 /CUMM) 0 Absolute Basophils (0.0 - 0.2 /CUMM) 0 07/18 UNK Hematology CBC w Diff MAN DIFF ORDERED WBC (4.8 - 10.8 /CUMM) 15.6 H RBC (4.20 - 5.40 /CUMM) 4.22 Hgb (12.0 - 16.0 G/DL) 11.8 L Hct (37 - 47 %) 35.5 L MCV (81.0 - 99.0 FL) 84.0 MCH (27.0 - 31.0 PG) 28.0 MCHC (33.0 - 37.0 G/DL) 33.3 RDW (11.5 - 14.5 %) 16.4 H Plt Count (130 - 400 /CUMM) 148 MPV (7.4 - 10.4 FL) 7.7 Gran % (42.2 - 75.2 %) 86.9 H Lymphocytes % (20.5 - 51.1 %) 7.7 L Monocytes % (1.7 - 9.3 %) 4.5 Eosinophils % (0 - 5 %) 0.6 Basophils % (0.0 - 2.0 %) 0.3 Absolute Granulocytes (1.4 - 6.5 /CUMM) 13.6 H Segmented Neutrophils (42.2 - 75.2 %) 72 Band Neutrophils (0.0 - 5.0 %) 11 H Absolute Lymphocytes (1.2 - 3.4 /CUMM) 1.2 Lymphocytes (20.5 - 51.1 %) 9 L Monocytes (1.7 - 9.3 %) 6 Absolute Monocytes (0.10 - 0.60 /CUMM) 0.7 H Eosinophils (0 - 5.0 %) 2 Absolute Eosinophils (0.0 - 0.7 /CUMM) 0.1 Absolute Basophils (0.0 - 0.2 /CUMM) 0.1 Platelet Estimate (ADEQUATE) ADEQUATE Hypochromic-Microcytic 1+ Anisocytosis 1+ Assessment/Plan Assessment/Plan This 62-year-old female with pmh significant for asthma, psoriasis, mitral valve prolapse, hypertension, hypothyroidism, and venous insufficiency, who is admitted for acute diverticulitis of ascending colon, no fevers in last 24 hours , but reporting ongoing headaches currently npo / ivf will make iv tylenol around the clock and add iv toradol prn headaches / pain continue iv rocephin / flagyl continue lasix daily oob/ambulation hep sc - dvt ppx f/u labs patient seen & examined with Dr.Floch tam d/w Core Measures Venous Thromboembolism VTE Risk Factors No risk factors No Mechanical VTE Prophylaxis d/t N/A MechProphylax Ordered No VTE Pharm Prophylaxis d/t NA PharmProphylax ordered
[2018-02-03 08:47] LABS: ABSOLUTE BASOPHIL COUNT 0 /CUMM (0.0-0.2); ABSOLUTE EOSINOPHIL COUNT 0.3 /CUMM (0.0-0.7); ABSOLUTE GRANULOCYTE CT 8.4 /CUMM (1.4-6.5); ABSOLUTE LYMPH COUNT 0.6 /CUMM (1.2-3.4); ABSOLUTE MONOCYTE COUNT 0.6 /CUMM (0.10-0.60); BASOPHIL % 0.1 % (0.0-2.0); EOSINOPHIL % 2.7 % (0-5); GRANULOCYTE % 84.7 % (42.2-75.2); HEMATOCRIT 32.4 % (37-47); MEAN CORPUSCULAR HGB 27.8 PG (27.0-31.0); MEAN CORPUSCULAR HGB CONC 33.4 G/DL (33.0-37.0); MEAN CORPUSCULAR VOLUME 83.4 FL (81.0-99.0); MEAN PLATELET VOLUME 7.5 FL (7.4-10.4); PLATELET COUNT 152 /CUMM (130-400); RBC DISTRIBUTION WIDTH 16.2 % (11.5-14.5); RED BLOOD CELL CT 3.89 /CUMM (4.20-5.40)
[2018-02-03 13:35] VITALS: BP 150/80
--- NOTE | 2018-02-03 21:22 | Patient Discharge Instructions ---
Discharge Instructions General Discharge Information You were seen/treated for: acute diverticulitis, ascending colon You had these procedures: bowel rest, iv antibiotics Watch for these problems: fever>101.3, increased pain, nausea/vomiting, dizziness, shortness of breath, chest pains Diet Continue normal diet: No Recommended Diet: Low Residue Additional DIET Information: eventual transition to high fiber diet in several weeks Activity Full Activity/No Limits: Yes Activity Self Limited: Yes Acute Coronary Syndrome Inclusion Criteria At DC or during hospital stay patient has or had the following: ACS DIAGNOSIS No Discharge Core Measures Meds if any: Prescribed or Continued at Discharge Meds if any: NOT Prescribed or Continued at Discharge Congestive Heart Failure Inclusion Criteria At DC or during hospital stay patient has or had the following: CHF DIAGNOSIS No Discharge Core Measures Meds if any: Prescribed or Continued at Discharge Meds if any: NOT Prescribed or Continued at Discharge Cerebrovascular accident Inclusion Criteria At DC or during hospital stay patient has or had the following: CVA/TIA Diagnosis No Discharge Core Measures Meds if any: Prescribed or Continued at Discharge Meds if any: NOT Prescribed or Continued at Discharge Venous thromboembolism Inclusion Criteria VTE Diagnosis No VTE Type NONE VTE Confirmed by (Test) NONE Discharge Core Measures - Per Current guidelines, there needs to be overlap - treatment for the first 5 days of Warfarin therapy. - If discharged on Warfarin prior to 5 days of - overlap therapy, the patient will need to be - assessed for post discharge needs including - *Post discharge parental anticoagulation - *Warfarin and/or parental anticoagulation education - *Follow up date to check INR post discharge At least 5 days overlap therapy as Inpatient No Meds if any: Prescribed or Continued at Discharge Note: Overlap Therapy is Warfarin and Anticoagulant Meds if any: NOT Prescribed or Continued at Discharge
[2018-02-03] MEDS ORDERED: FLAGYL500 MG PO (21:23)
[2018-02-03] MEDS ORDERED: CIPRO500 M1 PO (21:23)
--- NOTE | 2018-02-03 21:27 | Surg Short-stay <48hrs Dis Sum ---
Visit Information Visit Dates Admission Date: 02/01/18 Surgical Short Stay DC Summary Admission Diagnosis: acute diverticulitis, ascending colon Final Diagnosis: acute diverticulitis, ascending colon Procedure(s): bowel rest, iv antibiotics Summary/Significant Findings: Presented to the ED on 02/01/18 with acute onset abdominal pain, found to be secondary to acute diverticulitis of her ascending colon. IV rocephin and flagyl were initiated, and she remained npo until her exam and symptoms improved. Slow diet advancement from clears to low residue diet was tolerated prior to discharge home, to complete another 10 days of oral antibiotics. Condition at Discharge: stable Discharge Disposition: home or self care Discharge instructions provided to patient/family: Yes Post discharge follow-up plan: one week follow up with complete 10 more days of oral antibiotics Copies to: Marlen SOTO,Darvin Brian
[2018-02-03 22:38] VITALS: BP 160/80
[2018-02-04 06:56] VITALS: BP 130/80
[2018-02-04 08:37] LABS: ABSOLUTE BASOPHIL COUNT 0 /CUMM (0.0-0.2); ABSOLUTE EOSINOPHIL COUNT 0.4 /CUMM (0.0-0.7); ABSOLUTE GRANULOCYTE CT 5.9 /CUMM (1.4-6.5); ABSOLUTE LYMPH COUNT 0.8 /CUMM (1.2-3.4); ABSOLUTE MONOCYTE COUNT 0.6 /CUMM (0.10-0.60); BASOPHIL % 0.4 % (0.0-2.0); EOSINOPHIL % 4.8 % (0-5); GRANULOCYTE % 76.7 % (42.2-75.2); HEMATOCRIT 30.3 % (37-47); MEAN CORPUSCULAR HGB 28.3 PG (27.0-31.0); MEAN CORPUSCULAR HGB CONC 33.8 G/DL (33.0-37.0); MEAN CORPUSCULAR VOLUME 83.8 FL (81.0-99.0); MEAN PLATELET VOLUME 7.1 FL (7.4-10.4); PLATELET COUNT 153 /CUMM (130-400); RBC DISTRIBUTION WIDTH 16.4 % (11.5-14.5); RED BLOOD CELL CT 3.61 /CUMM (4.20-5.40); WHITE BLOOD CELL COUNT 7.8 /CUMM (4.8-10.8)
--- NOTE | 2018-02-04 10:01 | PN- General Surgery ---
See Addendum Subjective Subjective: Mild episode of diaphoresis last night, no documented fevers. Pain is improving , no nausea no vomiting, tolerating clear liquid diet, positive small mucus bowel movements, positive flatus Objective Vital Signs and I&Os Vital Signs Date Time Temp Pulse Resp B/P B/P Pulse O2 O2 Flow FiO2 Mean Ox Delivery Rate 02/04 0656 98.9 64 20 130/80 94 02/03 2238 97.9 68 18 160/80 95 02/03 2226 95 Room Air 02/03 1335 97.7 67 20 150/80 95 02/03 1103 91 Room Air Room Air Intake & Output 02/04 1600 02/04 0800 02/04 0000 02/03 1600 02/03 0800 02/03 0000 Intake Total 686 924 2810 1120 120 Output Total 400 Balance 334 565 9334 1120 120 Intake, IV 400 111 509 5873 Intake, Oral 462 183 6751 120 120 Number 1 Bowel Movements Output, Urine 400 Patient 242 lb 246 lb Weight Weight Bed scale Measurement Method Physical Exam: Well-developed well-nourished no apparent distress. HEENT: Atraumatic, extraocular motion intact Neck: Supple, no lymphadenopathy Respiratory: No respiratory distress Abdomen: Obese, tenderness is mild right mid abdominal region. No peritoneal signs. Positive bowel sounds Extremities: No edema, no calf pain Neuro: Alert and oriented x3 Psych: Mood affect normal, normal memory normal judgment. Skin: Warm and dry, no rash on exposed skin Results Last 48 Hours of Labs: Laboratory Tests 02/04 02/04 0641 0624 Chemistry Sodium (137 - 145 mmol/L) 141 Potassium (3.5 - 5.1 mmol/L) 3.3 L Chloride (98 - 107 mmol/L) 99 Carbon Dioxide (22 - 30 mmol/L) 32 H Anion Gap (5 - 16) 11 BUN (7 - 17 mg/dL) 8 Creatinine (0.5 - 1.0 mg/dL) 0.6 Estimated GFR (>60 ml/min) > 60 BUN/Creatinine Ratio (7 - 25 %) 13.3 Hematology CBC w Diff NO MAN DIFF REQ WBC (4.8 - 10.8 /CUMM) 7.8 RBC (4.20 - 5.40 /CUMM) 3.61 L Hgb (12.0 - 16.0 G/DL) 10.2 L Hct (37 - 47 %) 30.3 L MCV (81.0 - 99.0 FL) 83.8 MCH (27.0 - 31.0 PG) 28.3 MCHC (33.0 - 37.0 G/DL) 33.8 RDW (11.5 - 14.5 %) 16.4 H Plt Count (130 - 400 /CUMM) 153 MPV (7.4 - 10.4 FL) 7.1 L Gran % (42.2 - 75.2 %) 76.7 H Lymphocytes % (20.5 - 51.1 %) 10.9 L Monocytes % (1.7 - 9.3 %) 7.2 Eosinophils % (0 - 5 %) 4.8 Basophils % (0.0 - 2.0 %) 0.4 Absolute Granulocytes (1.4 - 6.5 /CUMM) 5.9 Absolute Lymphocytes (1.2 - 3.4 /CUMM) 0.8 L Absolute Monocytes (0.10 - 0.60 /CUMM) 0.6 Absolute Eosinophils (0.0 - 0.7 /CUMM) 0.4 Absolute Basophils (0.0 - 0.2 /CUMM) 0 07/20 0740 Chemistry Sodium (137 - 145 mmol/L) 141 Potassium (3.5 - 5.1 mmol/L) 3.8 Chloride (98 - 107 mmol/L) 101 Carbon Dioxide (22 - 30 mmol/L) 29 Anion Gap (5 - 16) 10 BUN (7 - 17 mg/dL) 9 Creatinine (0.5 - 1.0 mg/dL) 0.5 Estimated GFR (>60 ml/min) > 60 BUN/Creatinine Ratio (7 - 25 %) 18.0 Hematology CBC w Diff NO MAN DIFF REQ WBC (4.8 - 10.8 /CUMM) 10.0 RBC (4.20 - 5.40 /CUMM) 3.89 L Hgb (12.0 - 16.0 G/DL) 10.8 L Hct (37 - 47 %) 32.4 L MCV (81.0 - 99.0 FL) 83.4 MCH (27.0 - 31.0 PG) 27.8 MCHC (33.0 - 37.0 G/DL) 33.4 RDW (11.5 - 14.5 %) 16.2 H Plt Count (130 - 400 /CUMM) 152 MPV (7.4 - 10.4 FL) 7.5 Gran % (42.2 - 75.2 %) 84.7 H Lymphocytes % (20.5 - 51.1 %) 6.4 L Monocytes % (1.7 - 9.3 %) 6.1 Eosinophils % (0 - 5 %) 2.7 Basophils % (0.0 - 2.0 %) 0.1 Absolute Granulocytes (1.4 - 6.5 /CUMM) 8.4 H Absolute Lymphocytes (1.2 - 3.4 /CUMM) 0.6 L Absolute Monocytes (0.10 - 0.60 /CUMM) 0.6 Absolute Eosinophils (0.0 - 0.7 /CUMM) 0.3 Absolute Basophils (0.0 - 0.2 /CUMM) 0 Assessment/Plan Assessment/Plan This 62-year-old female with pmh significant for asthma, psoriasis, mitral valve prolapse, morbid obesity, hypertension, hypothyroidism, and venous insufficiency , who is admitted for acute diverticulitis of ascending colon, improving Tolerated clears yesterday, advance to full liquid diet for lunch continue iv rocephin / flagyl continue lasix daily oob/ambulation hep sc - dvt ppx White blood cell count normalized Mild hypokalemia at 3.3, likely due to diet restriction, we will replete with K Dur 20 mEq p.o. twice daily, recheck in a.m. Core Measures Venous Thromboembolism VTE Risk Factors No risk factors No Mechanical VTE Prophylaxis d/t N/A MechProphylax Ordered No VTE Pharm Prophylaxis d/t NA PharmProphylax ordered
[2018-02-04 14:56] VITALS: BP 155/82
[2018-02-04 21:47] VITALS: BP 152/70
[2018-02-05 06:27] VITALS: BP 170/98
--- NOTE | 2018-02-05 09:19 | PN- General Surgery ---
Lori Fong [birth year]18912: Subjective Subjective: Patient is alert and oriented lying in bed without complaints this morning. She started her full liquid diet and has some mild epigastric and right flank discomfort. She is passing gas and has loose Bm this morning. Objective Vital Signs and I&Os Vital Signs Date Time Temp Pulse Resp B/P B/P Pulse O2 O2 Flow FiO2 Mean Ox Delivery Rate 02/05 627 97.9 63 14 170/98 95 Room Air 02/04 2147 97.8 75 16 152/70 98 Room Air 02/05 2012 96 Room Air 02/04 1456 97.0 67 20 155/82 96 Room Air 02/04 1103 94 Room Air Room Air Intake & Output 02/05 1600 02/05 0800 02/05 0000 02/04 1600 02/04 0802/04 0000 Intake Total 450 1060 520 345 Output Total Balance 450 1060 520 345 Intake, IV 350 260 400 225 Intake, Oral 100 800 120 120 Patient 232 lb 242 lb Weight Physical Exam: Patient is alert and oriented answers questions Chest is clear to auscultation symmetric without rales rhonchi or wheeze Heart is regular rate rhythm without murmurs rubs gallops Abdomen is rounded with mild distention tender in the epigastric area and right flank area with palpation however this is generalized soreness Positive bowel sounds Bilateral lower extremities are soft with good perfusion Current Medications: Current Medications Sig/Arlen Start time Last Medication Dose Route Stop Time Status Admin Acetaminophen 1,000 MG Q6H 02/04 2100 AC 02/05 N/A 1 UNIT IV 0312 Acetaminophen 1,000 MG Q6 02/03 1200 DC 02/04 N/A 1 UNIT IV 1449 Albuterol Sulfate 3 ML Q4P PRN 02/01 1415 AC 02/04 INH 2010 Ceftriaxone Sodium 2,000 MG Q12H 02/01 1200 AC 02/05 IV 0051 Furosemide 20 MG DAILY 02/05 0630 AC 02/05 PO 0638 Furosemide 20 MG AT BEDTIME 02/03 2130 AC 02/04 PO 2022 Heparin Sodium 5,000 UNIT Q8 02/01 06 AC 02/05 (Porcine) SC 0549 Ketorolac 30 MG Q6P PRN 02/03 0745 AC 02/03 Tromethamine IV 0848 Levothyroxine Sodium 0.3 MG DAILY AC 02/02 07 AC 02/05 PO 0549 Loratadine 10 MG DAILY 02/03 1030 AC PO Metronidazole 500 MG Q8H 02/01 2200 AC 02/05 N/A 1 UNIT IV 0544 Morphine Sulfate 2 MG Q3P PRN 02/01 0245 AC 02/02 IV 2219 Morphine Sulfate 4 MG Q3P PRN 02/01 0200 AC 02/01 IV 2359 Ondansetron HCl 4 MG Q6P PRN 02/01 0200 AC 02/03 IV 0521 Pantoprazole Sodium 40 MG DAILY 02/02 0900 AC 02/04 IV 0930 Potassium Chloride 20 MEQ BID 02/04 1000 AC 02/04 PO 2021 Results Last 48 Hours of Labs: Laboratory Tests 02/05 02/04 02/04 0846 0641 0624 Chemistry Sodium (137 - 145 mmol/L) Pending 141 Potassium (3.5 - 5.1 mmol/L) Pending 3.3 L Chloride (98 - 107 mmol/L) Pending 99 Carbon Dioxide (22 - 30 mmol/L) Pending 32 H Anion Gap (5 - 16) Pending 11 BUN (7 - 17 mg/dL) Pending 8 Creatinine (0.5 - 1.0 mg/dL) Pending 0.6 Estimated GFR (>60 ml/min) > 60 BUN/Creatinine Ratio (7 - 25 %) Pending 13.3 Hematology CBC w Diff Pending NO MAN DIFF REQ WBC (4.8 - 10.8 /CUMM) Pending 7.8 RBC (4.20 - 5.40 /CUMM) Pending 3.61 L Hgb (12.0 - 16.0 G/DL) Pending 10.2 L Hct (37 - 47 %) Pending 30.3 L MCV (81.0 - 99.0 FL) Pending 83.8 MCH (27.0 - 31.0 PG) Pending 28.3 MCHC (33.0 - 37.0 G/DL) Pending 33.8 RDW (11.5 - 14.5 %) Pending 16.4 H Plt Count (130 - 400 /CUMM) Pending 153 MPV (7.4 - 10.4 FL) Pending 7.1 L Gran % (42.2 - 75.2 %) 76.7 H Lymphocytes % (20.5 - 51.1 %) 10.9 L Monocytes % (1.7 - 9.3 %) 7.2 Eosinophils % (0 - 5 %) 4.8 Basophils % (0.0 - 2.0 %) 0.4 Absolute Granulocytes (1.4 - 6.5 /CUMM) 5.9 Absolute Lymphocytes (1.2 - 3.4 /CUMM) 0.8 L Absolute Monocytes (0.10 - 0.60 /CUMM) 0.6 Absolute Eosinophils (0.0 - 0.7 /CUMM) 0.4 Absolute Basophils (0.0 - 0.2 /CUMM) 0 Assessment/Plan Assessment/Plan 62-year-old female with pmh significant for asthma, psoriasis, mitral valve prolapse, morbid obesity, hypertension, hypothyroidism, and venous insufficiency , who is admitted for acute diverticulitis of ascending colon She started a full liquid diet this morning and feels slight worsening of her abdominal pain mainly in the epigastric area and right flank. I've asked her to ambulate as much as possible today and we will continue to monitor before progressing her diet any further. Will remain on Rocephin and Flagyl. She has mild hypokalemia and has been on replacement potassium. A.m. labs are currently pending and adjustments will be made accordingly. She is on heparin subcutaneous for DVT prophylaxis. Patient states she does not feel well enough to go home today. Core Measures Venous Thromboembolism VTE Risk Factors No risk factors No Mechanical VTE Prophylaxis d/t N/A MechProphylax Ordered No VTE Pharm Prophylaxis d/t NA PharmProphylax ordered Jesús Steinberg DO 02/05/18 1522: Attending MD Review Statement Attending Statement Attending MD Statement: examined this patient, discuss w/resident/PA/DATA ENTRY REPRESENTATIVE, agreed w/resident/PA/DATA ENTRY REPRESENTATIVE, reviewed EMR data (avail), reviewed images Attending Assessment/Plan: Patient seen and examined, agree with above. Had pain/cramping earlier, currently pain better, +diarrhea this AM, no further nausea. AVSS UO ok. Abd- soft, NT. Labs ok. Diet, IV Abx, serial abdominal exams, nausea could be related to the flagyl, will re-eval in AM.
[2018-02-05 09:34] LABS: ABSOLUTE BASOPHIL COUNT 0 /CUMM (0.0-0.2); ABSOLUTE EOSINOPHIL COUNT 0.4 /CUMM (0.0-0.7); ABSOLUTE GRANULOCYTE CT 5.7 /CUMM (1.4-6.5); ABSOLUTE MONOCYTE COUNT 0.6 /CUMM (0.10-0.60); BASOPHIL % 0.5 % (0.0-2.0); EOSINOPHIL % 5.5 % (0-5); GRANULOCYTE % 73.3 % (42.2-75.2); HEMATOCRIT 32.8 % (37-47); MEAN CORPUSCULAR HGB 27.7 PG (27.0-31.0); MEAN CORPUSCULAR HGB CONC 33.1 G/DL (33.0-37.0); MEAN CORPUSCULAR VOLUME 83.8 FL (81.0-99.0); MEAN PLATELET VOLUME 7.2 FL (7.4-10.4); PLATELET COUNT 174 /CUMM (130-400); RED BLOOD CELL CT 3.92 /CUMM (4.20-5.40); WHITE BLOOD CELL COUNT 7.8 /CUMM (4.8-10.8)
[2018-02-05 15:17] VITALS: BP 158/98
[2018-02-05 21:34] VITALS: BP 130/82
[2018-02-06 06:08] VITALS: BP 150/80
[2018-02-06 08:33] LABS: ABSOLUTE BASOPHIL COUNT 0 /CUMM (0.0-0.2); ABSOLUTE EOSINOPHIL COUNT 0.4 /CUMM (0.0-0.7); ABSOLUTE LYMPH COUNT 1.2 /CUMM (1.2-3.4); ABSOLUTE MONOCYTE COUNT 0.6 /CUMM (0.10-0.60); BASOPHIL % 0.5 % (0.0-2.0); EOSINOPHIL % 5.7 % (0-5); GRANULOCYTE % 68.4 % (42.2-75.2); MEAN CORPUSCULAR HGB CONC 33.3 G/DL (33.0-37.0); MEAN PLATELET VOLUME 6.9 FL (7.4-10.4); PLATELET COUNT 188 /CUMM (130-400); RBC DISTRIBUTION WIDTH 15.7 % (11.5-14.5); RED BLOOD CELL CT 3.81 /CUMM (4.20-5.40); WHITE BLOOD CELL COUNT 7.4 /CUMM (4.8-10.8)
--- NOTE | 2018-02-06 10:49 | PN- General Surgery ---
Subjective Subjective: Awake, alert No complaints overnight Continues to have some loose stools Denies nausea, vry mild abdominal pain - improved Objective Vital Signs and I&Os Vital Signs Date Time Temp Pulse Resp B/P B/P Pulse O2 O2 Flow FiO2 Mean Ox Delivery Rate 02/06 0608 99.2 62 18 150/80 95 02/05 2134 98.2 85 18 130/82 94 02/05 2018 95 Room Air 02/05 1534 Room Air 02/05 1517 97.7 63 18 158/98 92 02/05 1207 92 Room Air Room Air Intake & Output 02/06 1600 02/06 0800 02/06 0000 02/05 1600 02/05 0800 02/05 0000 Intake Total 510 960 705 481 4098 Output Total Balance 510 960 910 215 8026 Intake, IV 150 260 350 260 Intake, Oral 360 700 600 100 800 Patient 232 lb Weight Physical Exam: Tmax 99.2, all other vss General: alert and oriented times three Chest: clear bilaterally Abd; soft, nondistended, nontender to moderate palpation, tender at RLQ to deep palpation only good bs Ext: warm, trace edema BLE Assessment/Plan Assessment/Plan 62yo female admitted with microperf diverticulitis, now improved on full liquid diet Will discuss dc plan with Dr Steinberg Continue full liquids for now Continue potassiu supplement - pt states that she was prescribed potassium/lasix by PCP but she stopped the potassium on her own as she doesn't like to take it - change to liquid as she doesn't like the large pills Core Measures Venous Thromboembolism VTE Risk Factors No risk factors No Mechanical VTE Prophylaxis d/t N/A MechProphylax Ordered No VTE Pharm Prophylaxis d/t NA PharmProphylax ordered
--- NOTE | 2018-02-06 12:51 | Event Note ---
Event Note Event Note: Patient's diet advanced to low fibre. However, due to listed wheat allergy, choices are limited. Patient states that she is not allergic to wheat, she states she gets bloated with bread intake. Per patient's request, wheat allergy removed.
[2018-02-06 14:45] VITALS: BP 150/84
[2018-02-06] MEDS ORDERED: CIPRO500 M1 PO (17:08)
[2018-02-06] MEDS ORDERED: FLAGYL500 MG PO (17:08)
== END 2018-02-06 20:33 | DRG 392 ==
LOC: ERH 23:09 → 2NA 02-01 01:46 → ERHI 02-01 01:46 → ENRESERV 02-01 04:38 → 2NA 02-01 04:55 → ENTRNSPT 02-06 20:13 → 2NA 02-06 20:33 → CMPTRNSPT 02-06 20:39
PROVIDERS: Pediatrics; Physician Assistant; Physician Assistant Surgical
DX: K57.20 Diverticulitis of large intestine with perforation and abscess without bleeding (principal); Z68.41 Body mass index [BMI] 40.0-44.9, adult; I10 Essential (primary) hypertension; E03.9 Hypothyroidism, unspecified; J45.909 Unspecified asthma, uncomplicated; I87.2 Venous insufficiency (chronic) (peripheral); I34.1 Nonrheumatic mitral (valve) prolapse; E66.01 Morbid (severe) obesity due to excess calories; R51 Headache; L40.9 Psoriasis, unspecified; Z88.2 Allergy status to sulfonamides; Z88.8 Allergy status to other drugs, medicaments and biological substances; Z90.49 Acquired absence of other specified parts of digestive tract
CPT/HCPCS: 2NASP; 36415; 36592; 74176; 81001; 82436; 93005; 93010; 96361; 96365; 96375; J0131; J0696; J1100; J1644; J1885; J2405; J7042; J7120; S5012

== ENCOUNTER 2018-02-11 01:19 | Observation (INO) | payer OTHER ==
[~2018-02-11] VITALS: Ht 154.9 cm; Wt 113.4 kg
[~2018-02-11 01:19] MED LIST changes: +CIPRO500 M1 PO; +FLAGYL500 MG PO; +FUROSEMIDE20 M1 PO; +SYNTHROID300 MCG PO
--- NOTE | 2018-02-11 01:35 | ED GI/GU/ABDOMINAL COMPLAINT ---
History of Present Illness General Chief Complaint: General Adult Stated Complaint: PT C/O RECTAL BLEEDING ? HEMORRIDS Source: patient Exam Limitations: no limitations Vital Signs & Intake/Output Vital Signs & Intake/Output Vital Signs Date Time Temp Pulse Resp B/P B/P Pulse O2 O2 Flow FiO2 Mean Ox Delivery Rate 02/11 0444 98.0 73 18 119/53 98 Room Air 02/11 0132 98.2 72 16 128/75 96 Room Air Allergies Coded Allergies: Sulfa (Sulfonamide Antibiotics) (Intermediate, HIVES 02/22/16) fluticasone (From ADVAIR DISKUS) (Intermediate, PNEUMONIA 02/22/16) lactose (Intermediate, GI UPSET 02/22/16) salmeterol (From ADVAIR DISKUS) (Intermediate, PNEUMONIA 02/22/16) pollen extracts (Mild, SINUS ISSUES 02/22/16) Reconcile Medications Albuterol Sulfate (Proair Hfa) 90 MCG HFA.AER.AD 2 PUF INH Q4-6 PRN PRN ASTHMA (Reported) Albuterol Sulfate 0.63 MG/3 ML VIAL.NEB 1 Vial INH/IMTIAZ DAILY PRN ASTHMA ( Reported) Ciprofloxacin HCl (Cipro) 500 MG TABLET 1 TAB PO BID acute diverticulitis . Furosemide 20 MG TABLET 1 TAB PO DAILY DIURETIC (Reported) Levothyroxine Sodium (Synthroid) 300 MCG TABLET 1 TAB PO DAILY HYPOTHYROIDISM (Reported) Metronidazole (Flagyl) 500 MG TABLET 1 TAB PO TID acute diverticulitis do not drink alcohol while taking this medication. Triage Note: 62YO FEMALE TO TRIAGE W/CO BLEEDING FROM RECTUM TODAY. STATES SHE WAS DXED DIVERTICULITIS LAST WEEK, [facility] FROM [facility] ON AND REMAINS ON ANTIBIOTICS. Triage Nurses Notes Reviewed? yes ? n Is pt currently ? No Onset: Gradual Duration: hour(s): Timing: recent history Location: rectal bleeding Radiation: no radiation Associated Symptoms: rectal bleeding HPI: 62 yo woman recently admitted for diverticulitis presents with lower gi bleeding. She notes that she has had several episodes of dark red blood, "it looked like clots" in her toilet bowel. The first episode began approximately 3-4pm. She notes no abdominal pain, nausea, vomiting, diarrhea. She is otherwise well. Past History Travel History Traveled to [place] past 21 day No Medical History Any Pertinent Medical History? 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 No Review of Systems Review of Systems Constitutional: Denies: see HPI. Physical Exam Physical Exam Gastrointestinal: normal bowel sounds, soft, non-tender Comments: Review of Systems - except as otherwise noted in HPI Review of Systems Constitutional:no symptoms. EENTM:no symptoms. Respiratory:no symptoms. Cardiovascular:no symptoms. GI:no symptoms. Genitourinary:no symptoms. Musculoskeletal:no symptoms. Skin:no symptoms. Neurological/Psychological:no symptoms. Hematologic/Endocrine:no symptoms. Immunologic/Allergic:no symptoms. All Other Systems: Reviewed and Negative Physical Exam Physical Exam General Appearance: well developed/nourished, no apparent distress Head: atraumatic, normal appearance Eyes: Bilateral: normal appearance. Ears, Nose, Throat: normal pharynx, normal ENT inspection Neck: normal inspection, supple, full range of motion Respiratory: normal breath sounds, chest non-tender, no respiratory distress, quiet respiration, lungs clear Cardiovascular: regular rate/rhythm Gastrointestinal: normal bowel sounds, soft, non-tender, no organomegaly Back: normal inspection, normal range of motion Extremities: normal inspection, normal capillary refill, normal range of motion, no edema Neurologic/Psych: no motor/sensory deficits, awake, alert, oriented x 3 Skin: intact, normal color, warm/dry Rectal: no hemorrhoids.... guiac positive, no bob blood. Core Measures ACS in differential dx? No Sepsis Present: No Sepsis Focused Exam Completed? No Progress Differential Diagnosis: lower vs upper gi bleed, anal fissure/hemorrhoids. Plan of Care: Orders Procedure Date/time Status Nothing by Mouth 02/11 B Active CBC WITHOUT DIFFERENTIAL 02/11 0600 Active Vital Signs 02/11 0525 Active Teach/Educate 02/11 05 Active Pain Treatment and Response 02/11 05 Active Nutritional Intake, Monitor 02/11 05 Active Isolation 02/11 525 Active Intake & Output 02/11 525 Active Patient Care Conference 02/11 05 Active Activity/Ambulation 02/11 05 Active Pathway - chart 02/11 043 Active House Staff 02/11 0434 Active Code Status 02/11 0434 Active EKG 02/11 0408 Active Patient Data 02/11 0352 Active Saline Lock 02/[address] in observation 02/11 034 Active Misc Message 02/11 034 Active ED Holding Orders 02/11 034 Active Vital Signs 02/11 347 Active Code Status 02/11 034 Complete MISTAKE 02/11 0149 Active COMPREHENSIVE METABOLIC PANEL 02/11 135 Complete CBC WITHOUT DIFFERENTIAL 02/11 135 Complete TYPE & SCREEN (NOT X-MATCH) 02/11 135 Complete TRC EVALUATION (GEN) 02/11 UNK Active VTE Mechanical Prophylaxis 02/11 UNK Active Intake & Output 02/11 UNK Active Hemoccult 02/11 UNK Active Activity/Ambulation 02/11 UNK Active Current Medications Sig/Arlen Start time Last Medication Dose Stop Time Status Admin Albuterol Sulfate 3 ML DAILY 02/11 0900 AC (Proventil) Ciprofloxacin 500 MG BID 02/11 0900 AC (Cipro) 02/15 0859 Furosemide 20 MG DAILY 02/11 0900 AC (Lasix) Levothyroxine Sodium 0.3 MG DAILY AC 02/11 0700 AC 02/11 (Synthroid) 0550 Albuterol Sulfate 2 PUF Q4-6 PRN PRN 02/11 044 AC (Ventolin) Metronidazole 500 MG TID 02/11 0445 AC 02/11 (Flagyl) 0453 Acetaminophen 650 MG Q6PRN PRN 02/11 0430 AC (Tylenol) Laboratory Tests 02/11/ 0147: Anion Gap 14, Estimated GFR > 60, BUN/Creatinine Ratio 31.3 H, Glucose 134 H, Calcium 9.1, Total Bilirubin 0.6, AST 21, ALT 27, Alkaline Phosphatase 79, Total Protein 7.3, Albumin 3.7, Globulin 3.6, Albumin/Globulin Ratio 1.0 L, CBC w Diff NO MAN DIFF REQ, RBC 3.87 L, MCV 83.1, MCH 27.6, MCHC 33.3, RDW 15.8 H, MPV 6.5 L, Gran % 77.7 H, Lymphocytes % 14.8 L, Monocytes % 4.9, Eosinophils % 2.3, Basophils % 0.3, Absolute Granulocytes 9.8 H, Absolute Lymphocytes 1.9, Absolute Monocytes 0.6, Absolute Eosinophils 0.3, Absolute Basophils 0 Initial ED EKG: pending Departure Departure Disposition: STILL A PATIENT Condition: Stable Clinical Impression Primary Impression: Lower GI bleed Referrals: Marlen SOTO,Darvin Brian (PCP/Family) Departure Forms: Customer Survey General Discharge Information Comments 02/11/18, 3:17am... discussed with dr. de anda (GI) Observation Note Spoke With: Pio SOTO,[facility] Patient In: Non-ED OBS Care Area Rationale for Observation: My rational for observation is as follows . Pt with h/o diverticulitis, discharged a few days ago, now with lower GI bleed - several episodes of dark blood/clots... pt merits serial hct, gi consult in AM.
[2018-02-11 01:56] LABS: ABSOLUTE BASOPHIL COUNT 0 /CUMM (0.0-0.2); ABSOLUTE EOSINOPHIL COUNT 0.3 /CUMM (0.0-0.7); ABSOLUTE GRANULOCYTE CT 9.8 /CUMM (1.4-6.5); ABSOLUTE LYMPH COUNT 1.9 /CUMM (1.2-3.4); ABSOLUTE MONOCYTE COUNT 0.6 /CUMM (0.10-0.60); BASOPHIL % 0.3 % (0.0-2.0); EOSINOPHIL % 2.3 % (0-5); GRANULOCYTE % 77.7 % (42.2-75.2); HEMATOCRIT 32.1 % (37-47); MEAN CORPUSCULAR HGB 27.6 PG (27.0-31.0); MEAN CORPUSCULAR HGB CONC 33.3 G/DL (33.0-37.0); MEAN CORPUSCULAR VOLUME 83.1 FL (81.0-99.0); MEAN PLATELET VOLUME 6.5 FL (7.4-10.4); RBC DISTRIBUTION WIDTH 15.8 % (11.5-14.5); RED BLOOD CELL CT 3.87 /CUMM (4.20-5.40)
[2018-02-11 01:57] LABS: PLATELET COUNT 284 /CUMM (130-400); WHITE BLOOD CELL COUNT 12.7 /CUMM (4.8-10.8)
--- NOTE | 2018-02-11 04:26 | History & Physical ---
[facility] 0425: General Information and HPI MD Statement: I have seen and personally examined EDDIE HUITRON and documented this H&P. The patient is a 62 year old F who presented with a patient stated chief complaint of [GI bleed]. Source of Information: patient Exam Limitations: no limitations History of Present Illness: This is a 62-year-old female with a past medical history significant for asthma, psoriasis, mitral valve prolapse, hypertension, hypothyroidism, and venous insufficiency who presents to the emergency department with a chief complaint Maroon colored stools starting yesterday around 3-4 PM. Patient was recently admitted to [facility] for mitral perforated diverticulitis and was discharged on Tuesday on ciprofloxacin and Flagyl. Per the patient she was doing better with resolution of her abdominal pain and was following low fiber diet. Yesterday around 4:00 she went to have a bowel movement which was maroon in color. She got worried after she continued to have 3-4 episodes of maroon cleared stools and she decided to come to the ER. She also reports one episode of dark-colored stool in the ER and noticed clots in it. She denies any abdominal pain, nausea, vomiting, constipation, chest pain or palpitations. 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 Home Who Do You Live With? lives with boyfriend/father of her son Services at Home: None Smoking Status: Never Smoked ETOH Use: denies use Illicit Drug Use: denies illicit drug use Functional Ability ADLs Independent: dressing, eating, toileting, bathing. Ambulation: independent IADLs Independent: shopping, housework, finances, food prep, telephone, transportation , medication admin. Review of Systems Review of Systems Constitutional: Reports: no symptoms, see HPI, chills, diaphoresis, fever, malaise, weakness, unexplained weight loss. EENTM: Reports: no symptoms. Cardiovascular: Reports: no symptoms. Respiratory: Reports: no symptoms. GI: Reports: melena. Genitourinary: Reports: no symptoms. Musculoskeletal: Reports: no symptoms. Skin: Reports: no symptoms. Neurological/Psychological: Reports: no symptoms. Hematologic/Endocrine: Reports: no symptoms. Immunologic/Allergic: Reports: no symptoms. All Other Systems: Reviewed and Negative Exam & Diagnostic Data Last 24 Hrs of Vital Signs/I&O Vital Signs Date Time Temp Pulse Resp B/P B/P Pulse O2 O2 Flow FiO2 Mean Ox Delivery Rate 02/11 0132 98.2 72 16 128/75 96 Room Air Intake & Output 02/11 0800 02/11 0000 02/10 1600 Intake Total Output Total Balance Patient 250 lb Weight Physical Exam General Appearance Alert, Oriented X3, Cooperative, No Acute Distress Skin No Rashes, No Breakdown HEENT Atraumatic, PERRLA, EOMI Neck Supple, No JVD Cardiovascular Regular Rate, Normal S1, Normal S2 Lungs Clear to Auscultation, Normal Air Movement Abdomen Normal Bowel Sounds, Soft, No Tenderness Extremities No Clubbing, No Cyanosis, Normal Pulses, Chronic Venous stasis changes, +1 edema bilaterally Vascular Normal Pulses Last 24 Hrs of Labs/Eduin: Laboratory Tests 02/11/18 0147: Anion Gap 14, Estimated GFR > 60, BUN/Creatinine Ratio 31.3 H, Glucose 134 H, Calcium 9.1, Total Bilirubin 0.6, AST 21, ALT 27, Alkaline Phosphatase 79, Total Protein 7.3, Albumin 3.7, Globulin 3.6, Albumin/Globulin Ratio 1.0 L, CBC w Diff NO MAN DIFF REQ, RBC 3.87 L, MCV 83.1, MCH 27.6, MCHC 33.3, RDW 15.8 H, MPV 6.5 L, Gran % 77.7 H, Lymphocytes % 14.8 L, Monocytes % 4.9, Eosinophils % 2.3, Basophils % 0.3, Absolute Granulocytes 9.8 H, Absolute Lymphocytes 1.9, Absolute Monocytes 0.6, Absolute Eosinophils 0.3, Absolute Basophils 0 Assessment/Plan Assessment: This is a 62-year-old female with a past medical history significant for asthma, psoriasis, mitral valve prolapse, hypertension, hypothyroidism, and venous insufficiency who presents to the emergency department with a chief complaint Maroon colored stools starting yesterday around 3-4 PM. Problem List; 1. GI Bleed; H&H currently stable. 2. Recent diagnosis of diverticulitis with microperforation 3. History of Hypertension, asthma, hypothyroidism and venous insufficiency - Observe the patient on general floor for 24-48 hours - Keep the patient nothing by mouth(possibly colonoscopy/EGD in am) - GI consult - Repeat CBC in a.m. - Hemoccult - Continue ciprofloxacin and Flagyl for diverticulitis - TRC Evaluation - Continue home medications. DVT prophylaxis; Alps only Patient is full code As Ranked By This Provider Problem List: 1. Melena Core Measures/Misc (04/03) Acute Coronary Syndrome ACS Diagnosis: No Congestive Heart Failure Congestive Heart Failure Diagnosis No Cerebrovascular Accident CVA/TIA Diagnosis: No VTE (View Protocol) VTE Risk Factors Age>40 No Mechanical VTE Prophylaxis d/t N/A MechProphylax Ordered No VTE Pharm Prophylaxis d/t Bleeding (Active) Sepsis (View protocol) Sepsis Present: No If YES complete Sepsis Event Note If YES complete Sepsis Event Note Pio [facility] 02/11/18 7789: General Information and HPI MD Statement: I have seen and personally examined EDDIE HUITRON and documented this H&P. The patient is a 62 year old F who presented with a patient stated chief complaint of [GI bleed]. Source of Information: patient Exam Limitations: no limitations Allergies/Medications Allergies: Coded Allergies: Sulfa (Sulfonamide Antibiotics) (Intermediate, HIVES 02/22/16) fluticasone (From ADVAIR DISKUS) (Intermediate, PNEUMONIA 02/22/16) lactose (Intermediate, GI UPSET 02/22/16) salmeterol (From ADVAIR DISKUS) (Intermediate, PNEUMONIA 02/22/16) pollen extracts (Mild, SINUS ISSUES 02/22/16) Home Med list Albuterol Sulfate (Proair Hfa) 90 MCG HFA.AER.AD 2 PUF INH Q4-6 PRN PRN ASTHMA (Reported) Albuterol Sulfate 0.63 MG/3 ML VIAL.NEB 1 Vial INH/IMTIAZ DAILY PRN ASTHMA ( Reported) Ciprofloxacin HCl (Cipro) 500 MG TABLET 1 TAB PO BID acute diverticulitis . Furosemide 20 MG TABLET 1 TAB PO DAILY DIURETIC (Reported) Levothyroxine Sodium (Synthroid) 300 MCG TABLET 1 TAB PO DAILY HYPOTHYROIDISM (Reported) Metronidazole (Flagyl) 500 MG TABLET 1 TAB PO TID acute diverticulitis do not drink alcohol while taking this medication. Past History Medical History Cardiovascular: hypertension Respiratory: asthma Hepatic: FATTY LIVER Endocrine: hypothyroidism Surgical History Surgical History: cholecystectomy, , hernia repair-inguinal, B/L EVLT x 4 procedures, Bartholin Cyst Excision, D&C, Uterine Fibroid Excision Past Family/Social History Psychosocial History Smoking Status: Never Smoked ETOH Use: denies use Illicit Drug Use: denies illicit drug use Review of Systems Review of Systems Constitutional: Reports: see HPI. Exam & Diagnostic Data Last 24 Hrs of Vital Signs/I&O Vital Signs Date Time Temp Pulse Resp B/P B/P Pulse O2 O2 Flow FiO2 Mean Ox Delivery Rate 02/11 0444 98.0 73 18 119/53 98 Room Air 02/11 0132 98.2 72 16 128/75 96 Room Air Intake & Output 02/11 0800 02/11 0000 02/10 1600 Intake Total Output Total Balance Patient 250 lb Weight Physical Exam General Appearance Alert, Oriented X3, Cooperative, No Acute Distress Skin No Rashes, No Breakdown HEENT Atraumatic, PERRLA, EOMI Neck Supple, No JVD Lymphatic Axillary nl, Cervical nl Cardiovascular Regular Rate, Normal S1, Normal S2, No Murmurs Lungs Clear to Auscultation, Normal Air Movement Abdomen Normal Bowel Sounds, Soft, No Tenderness Extremities No Clubbing, No Cyanosis, Normal Pulses, Chronic Venous stasis changes, +1 edema bilaterally Vascular Normal Pulses Last 24 Hrs of Labs/Eduin: Laboratory Tests 02/11/18 0147: Anion Gap 14, Estimated GFR > 60, BUN/Creatinine Ratio 31.3 H, Glucose 134 H, Calcium 9.1, Total Bilirubin 0.6, AST 21, ALT 27, Alkaline Phosphatase 79, Total Protein 7.3, Albumin 3.7, Globulin 3.6, Albumin/Globulin Ratio 1.0 L, CBC w Diff NO MAN DIFF REQ, RBC 3.87 L, MCV 83.1, MCH 27.6, MCHC 33.3, RDW 15.8 H, MPV 6.5 L, Gran % 77.7 H, Lymphocytes % 14.8 L, Monocytes % 4.9, Eosinophils % 2.3, Basophils % 0.3, Absolute Granulocytes 9.8 H, Absolute Lymphocytes 1.9, Absolute Monocytes 0.6, Absolute Eosinophils 0.3, Absolute Basophils 0 Core Measures/Misc (04/03) Sepsis (View protocol) If YES complete Sepsis Event Note If YES complete Sepsis Event Note Attending MD Review Statement Attending Statement Attending MD Statement: examined this patient, discuss w/resident/PA/BLOW DOWN OPERATOR, agreed w/resident/PA/BLOW DOWN OPERATOR, amended to note Attending Assessment/Plan: This patient is a 62-year-old female with a significant past medical history for asthma, psoriasis, mitral valve prolapse, hypertension, hypothyroidism, and venous insufficiency who presents to the emergency department with a chief complaint Maroon colored stools starting 1 day prior to admission around 3-4 PM. She was recently admitted to surgery for micro perforated diverticulitis and was discharged 5 days prior to admission on ciprofloxacin and Flagyl. She was doing better with resolution of her abdominal pain and was following low fiber diet. Yesterday around 4:00 she went to have a bowel movement which was maroon in color. She got worried after she continued to have 3-4 episodes of maroon cleared stools and she decided to come to the ER. The patients vital signs are stable, her hemoglobin is at her baseline template 10.7, her white blood cell count is slightly elevated at 12.7. No additional radiologic studies are performed. Shell be placed into observation. GI was consulted by the ED department. We will keep her nothing by mouth until their evaluation in case they want to perform a colonoscopy. We will also continue her Cipro and Flagyl and watch for signs of C. difficile. Serial H&H will be performed.
[2018-02-11] MEDS ORDERED: PROAIR HFA8.5 GM INH (04:35)
[2018-02-11] MEDS ORDERED: ALBUTEROL0.63 MG/1 INH/SOL (04:36)
[2018-02-11 10:08] LABS: ABSOLUTE BASOPHIL COUNT 0.1 /CUMM (0.0-0.2); ABSOLUTE EOSINOPHIL COUNT 0.3 /CUMM (0.0-0.7); ABSOLUTE GRANULOCYTE CT 7.4 /CUMM (1.4-6.5); ABSOLUTE LYMPH COUNT 2.2 /CUMM (1.2-3.4); ABSOLUTE MONOCYTE COUNT 0.7 /CUMM (0.10-0.60); BASOPHIL % 0.7 % (0.0-2.0); GRANULOCYTE % 69.4 % (42.2-75.2); HEMATOCRIT 29.6 % (37-47); MEAN CORPUSCULAR HGB 27.8 PG (27.0-31.0); MEAN CORPUSCULAR HGB CONC 32.8 G/DL (33.0-37.0); MEAN CORPUSCULAR VOLUME 84.6 FL (81.0-99.0); MEAN PLATELET VOLUME 6.6 FL (7.4-10.4); PLATELET COUNT 234 /CUMM (130-400); RBC DISTRIBUTION WIDTH 16.3 % (11.5-14.5); WHITE BLOOD CELL COUNT 10.6 /CUMM (4.8-10.8)
--- NOTE | 2018-02-11 14:59 | PN- Att Addend ---
Attending Addendum Attending Brief Note Ms. Lira was seen and evaluated. H&P reviewed. Reports having painless GIB. Vital Signs Date Time Temp Pulse Resp B/P B/P Pulse O2 O2 Flow FiO2 Mean Ox Delivery Rate 02/11 1335 94 Room Air 02/11 1330 Room Air 02/11 0800 Room Air 02/11 0444 98.0 73 18 119/53 98 Room Air 02/11 0132 98.2 72 16 128/75 96 Room Air Intake & Output 02/11 1600 02/11 0800 02/11 0000 Intake Total Output Total Balance Number 1 Bowel Movements Patient 113.398 kg Weight A/P: --cont to monitor H&H, NPO, IVF --f/u GI eval
--- NOTE | 2018-02-11 18:39 | Cons- Gastroenterology ---
General Information and HPI Consulting Request Date of Consult: 02/11/18 Requested By: Brandt Suero MD Reason for Consult: 1. Lower GI bleed 2. History of acute diverticulitis 3. Acute blood loss anemia Source of Information: patient, ELECTRONIC MEDICAL RECORD Exam Limitations: no limitations History of Present Illness: Ms. Lira 62-year-old female with a past medical history significant for asthma, psoriasis, mitral valve prolapse, hypertension, hypothyroidism, and venous insufficiency who presents to the emergency department with a chief complaint maroon colored stools starting yesterday around 3-4 PM. She was recently discharged from [facility] after being treated for acute diverticulitis of the ascending colon with microperforation. She was discharged on Tuesday on ciprofloxacin and Flagyl. Patient had had resolution of her abdominal pain and had had no further fevers or shaking chills. She was eating a low residue diet however on the day prior to admission she had urgency for Y bowel movement which she noted was was loose, diarrheal, and maroon in color. She had 3-4 additional episodes of maroon stools which were large volume and contained clots. She she had an episode episode of maroon colored stool with clots in the ER and and again when she arrived on the floor. He is had no further significant hematochezia. She denies any abdominal pain, nausea, vomiting, constipation. She has had no fever , shaking chills, malaise, weight loss. She is had no dizziness or lightheadedness and no presyncope. She has no family history of breast, ovarian, uterine, kidney, urinary bladder or colon cancer. There is no family history of inflammatory bowel disease. She has not had a colonoscopy for over 10 years. She denies chronic use of NSAIDs. Allergies/Medications Allergies: Coded Allergies: Sulfa (Sulfonamide Antibiotics) (Intermediate, HIVES 02/22/16) fluticasone (From ADVAIR DISKUS) (Intermediate, PNEUMONIA 02/22/16) lactose (Intermediate, GI UPSET 02/22/16) salmeterol (From ADVAIR DISKUS) (Intermediate, PNEUMONIA 02/22/16) pollen extracts (Mild, SINUS ISSUES 02/22/16) Home Med List: Albuterol Sulfate (Proair Hfa) 90 MCG HFA.AER.AD 2 PUF INH Q4-6 PRN PRN ASTHMA (Reported) Albuterol Sulfate 0.63 MG/3 ML VIAL.NEB 1 Vial INH/IMTIAZ DAILY PRN ASTHMA ( Reported) Ciprofloxacin HCl (Cipro) 500 MG TABLET 1 TAB PO BID acute diverticulitis . Furosemide 20 MG TABLET 1 TAB PO DAILY DIURETIC (Reported) Levothyroxine Sodium (Synthroid) 300 MCG TABLET 1 TAB PO DAILY HYPOTHYROIDISM (Reported) Metronidazole (Flagyl) 500 MG TABLET 1 TAB PO TID acute diverticulitis do not drink alcohol while taking this medication. Current Medications: Current Medications Sig/Arlen Start time Last Medication Dose Route Stop Time Status Admin Acetaminophen 650 MG Q6PRN PRN 02/11 0430 AC PO Albuterol Sulfate 3 ML Q4P PRN 02/11 1330 AC 02/11 INH 1331 Albuterol Sulfate 3 ML DAILY 02/11 0900 DC INH Albuterol Sulfate 2 PUF Q4-6 PRN PRN 02/11 0445 AC INH Ciprofloxacin 500 MG BID 02/11 0900 AC 02/11 PO 02/15 0859 0925 Furosemide 20 MG DAILY 02/11 0900 AC 02/11 PO 0925 Levothyroxine Sodium 0.3 MG DAILY AC 02/11 0700 AC 02/11 PO 0550 Metronidazole 0 .STK-MED ONE 02/11 0452 DC PO Metronidazole 500 MG TID 02/11 0445 AC 02/11 PO 1359 Sodium Chloride 1,000 ML Q8H 02/11 1600 AC 02/11 IV 02/12 0759 1657 Past History Travel History Traveled to [place] past 21 day No Medical History Blood Transfusion Hx: No Neurological: NONE EENT: sinusitis Cardiovascular: hypertension, MITRAL VALVE PROLAPSE Respiratory: asthma Gastrointestinal: diverticulitis, hiatal hernia Hepatic: FATTY LIVER CHOLECYSTECTOMY Renal: KIDNEY STONE Musculoskeletal: PSORIASIS ARTHRITIS Psychiatric: NONE Endocrine: hypothyroidism Blood Disorders: anemia Cancer(s): NONE 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 Home Who Do You Live With? lives with boyfriend/father of her son Services at Home: None Smoking Status: Never Smoked ETOH Use: denies use Illicit Drug Use: denies illicit drug use Functional Ability ADLs Independent: dressing, eating, toileting, bathing. Ambulation: independent IADLs Independent: shopping, housework, finances, food prep, telephone, transportation , medication admin. Review of Systems Review of Systems Constitutional: Reports: no symptoms. EENTM: Reports: no symptoms. Cardiovascular: Reports: no symptoms. Respiratory: Reports: no symptoms. GI: Reports: see HPI. Genitourinary: Reports: no symptoms. Musculoskeletal: Reports: see HPI. Neurological/Psychological: Reports: no symptoms. Hematologic/Endocrine: Reports: no symptoms. Immunologic/Allergic: Reports: no symptoms. All Other Systems: Reviewed and Negative Exam & Diagnostic Data Vital Signs and I&O Vital Signs Date Time Temp Pulse Resp B/P B/P Pulse O2 O2 Flow FiO2 Mean Ox Delivery Rate 02/11 1335 94 Room Air 02/11 1330 Room Air 02/11 0800 Room Air 02/11 0444 98.0 73 18 119/53 98 Room Air 02/11 0132 98.2 72 16 128/75 96 Room Air Intake & Output 02/11 1600 02/11 0400 02/10 1600 02/10 0400 02/09 1600 02/09 0400 Intake Total Output Total Balance Number 1 Bowel Movements Patient 250 lb 250 lb Weight Physical Exam General Appearance: well developed/nourished, no apparent distress, comfortable Head: atraumatic Eyes: Bilateral: normal appearance. Ears, Nose, Throat: hearing grossly normal, poor dentition Neck: normal inspection, supple, full range of motion Respiratory: normal breath sounds, chest non-tender, no respiratory distress, lungs clear Cardiovascular: regular rate/rhythm, edema Gastrointestinal: normal bowel sounds, soft, no organomegaly Back: normal inspection, normal range of motion Extremities: no edema Neurologic/Psych: awake, alert, oriented x 3 Cranial Nerves: cranial nerves II through XII grossly intact Skin: normal color, warm/dry Lymphatic: no lymphadenopathy Results Pertinent Lab Results: Laboratory Tests 02/11 02/11 0953 0147 Chemistry Sodium (137 - 145 mmol/L) 140 Potassium (3.5 - 5.1 mmol/L) 3.7 Chloride (98 - 107 mmol/L) 99 Carbon Dioxide (22 - 30 mmol/L) 28 Anion Gap (5 - 16) 14 BUN (7 - 17 mg/dL) 25 H Creatinine (0.5 - 1.0 mg/dL) 0.8 Estimated GFR (>60 ml/min) > 60 BUN/Creatinine Ratio (7 - 25 %) 31.3 H Glucose (65 - 99 mg/dL) 134 H Calcium (8.4 - 10.2 mg/dL) 9.1 Total Bilirubin (0.2 - 1.3 mg/dL) 0.6 AST (14 - 36 U/L) 21 ALT (9 - 52 U/L) 27 Alkaline Phosphatase (<127 U/L) 79 Total Protein (6.3 - 8.2 g/dL) 7.3 Albumin (3.5 - 5.0 g/dL) 3.7 Globulin (1.9 - 4.2 gm/dL) 3.6 Albumin/Globulin Ratio (1.1 - 2.2 %) 1.0 L Hematology CBC w Diff NO MAN DIFF REQ NO MAN DIFF REQ WBC (4.8 - 10.8 /CUMM) 10.6 12.7 H RBC (4.20 - 5.40 /CUMM) 3.50 L 3.87 L Hgb (12.0 - 16.0 G/DL) 9.7 L 10.7 L Hct (37 - 47 %) 29.6 L 32.1 L MCV (81.0 - 99.0 FL) 84.6 83.1 MCH (27.0 - 31.0 PG) 27.8 27.6 MCHC (33.0 - 37.0 G/DL) 32.8 L 33.3 RDW (11.5 - 14.5 %) 16.3 H 15.8 H Plt Count (130 - 400 /CUMM) 234 284 MPV (7.4 - 10.4 FL) 6.6 L 6.5 L Gran % (42.2 - 75.2 %) 69.4 77.7 H Lymphocytes % (20.5 - 51.1 %) 20.4 L 14.8 L Monocytes % (1.7 - 9.3 %) 6.5 4.9 Eosinophils % (0 - 5 %) 3.0 2.3 Basophils % (0.0 - 2.0 %) 0.7 0.3 Absolute Granulocytes (1.4 - 6.5 /CUMM) 7.4 H 9.8 H Absolute Lymphocytes (1.2 - 3.4 /CUMM) 2.2 1.9 Absolute Monocytes (0.10 - 0.60 /CUMM) 0.7 H 0.6 Absolute Eosinophils (0.0 - 0.7 /CUMM) 0.3 0.3 Absolute Basophils (0.0 - 0.2 /CUMM) 0.1 0 Imaging/Other Studies: CT Scan from Prior Admission. GASTROINTESTINAL TRACT: There is focal pericolonic inflammation in the ascending colon in the setting of diverticula, most suspicious for acute diverticulitis. There may be a few punctate foci of free air in this region from microperforation. No discrete abscess is seen. No evidence of bowel obstruction. The appendix is partially distended with gas, and there are no findings to suggest acute appendicitis. No free fluid is identified. ABDOMINAL WALL: No significant hernia is appreciated. Assessment/Plan Assessment/Recommendations: ASSESSMENT: 1. Hematochezia. Likely diverticular bleeding. However in the setting of recent right-sided diverticulitis which is somewhat unusual must be concerned about underlying malignancy. 2. Acute blood loss anemia 3. Leukocytosis now resolved ON Cipro and Flagyl RECOMMENDATIONS: 1. Monitor for signs of ongoing blood loss both luminal losses i.e. clinical signs of GI bleeding as well as laboratory signs of GI bleeding 2. Continue Cipro and Flagyl 3. If patient has increased bleeding which is clinically or hemodynamically significant with get CT angiogram 4. Will likely defer colonoscopy for 4-6 weeks given evidence of microperforation on initial CT scan. Would prefer that patient have adequate time for healing prior to introducing the scope as well as excess air which would submit the right side of the colon to increaseD pressure/barotrauma Consult Acknowledgment - Thank you for your consult request.
[2018-02-11 20:01] VITALS: BP 158/76
[2018-02-11 22:53] VITALS: BP 134/78
[2018-02-12 06:33] VITALS: BP 132/88
--- NOTE | 2018-02-12 09:23 | PN- Housestaff ---
See Addendum Subjective Follow-up For: acute blood loss anemia diverticulitis with microperforation Complaints: no complaints Subjective: Patient states her abdominal pain has resolved on the right side of her abdomen. She says it still doesn't feel completely normal, but is no longer pain. Reports one BM this morning that was dark in nature. Denies fever, chills, n/v/ d, chest pain, SOB. Review of Systems Constitutional: Reports: see HPI. Objective Last 24 Hrs of Vital Signs/I&O Vital Signs Date Time Temp Pulse Resp B/P B/P Pulse O2 O2 Flow FiO2 Mean Ox Delivery Rate 02/12 0633 98.1 63 20 132/88 98 02/11 2253 98.3 71 16 134/78 94 Room Air 02/11 2029 97 Room Air 02/11 2001 98.4 65 20 158/76 95 Room Air Intake & Output 02/12 1600 02/12 0800 02/12 0000 Intake Total 1000 520 Output Total 200 100 Balance -200 1000 420 Intake, IV 700 300 Intake, Oral 300 220 Number 0 Bowel Movements Output, Urine 200 100 Physical Exam General Appearance: Alert, Oriented X3, Cooperative, No Acute Distress Skin: No Rashes Skin Temp/Moisture Exam: Warm/Dry HEENT: Atraumatic, PERRLA Neck: Supple Cardiovascular: Regular Rate, Normal S1, Normal S2, No Murmurs Lungs: Clear to Auscultation Abdomen: Normal Bowel Sounds, Soft, No Tenderness Extremities: No Edema, Normal Pulses Assessment/Plan Assessment: This is a 62-year-old female with a past medical history significant for asthma, psoriasis, mitral valve prolapse, hypertension, hypothyroidism, and venous insufficiency who presents to the emergency department with a chief complaint Maroon colored stools starting yesterday around 3-4 PM. Problem List; 1. GI Bleed; H&H currently stable. 2. Recent diagnosis of diverticulitis with microperforation 3. History of Hypertension, asthma, hypothyroidism and venous insufficiency GI bleed with anemia-likely 2/2 diverticulosis - GI consult; continue cipro/flagyl for diverticulitis with microperforation; monitor for blood loss via clinical and laboratory findings -monitor H/H #Chronic medical issues: - TRC Evaluation - Continue home medications. DVT prophylaxis; Alps only Patient is full code Problem List: 1. Lower GI bleed 2. Diverticulitis of colon with perforation Pain Ratin Pain Location: none Pain Goal: Remain pain free Pain Plan: see a/p Tomorrow's Labs & Rationales: cbc
[2018-02-12 14:39] VITALS: BP 138/70
--- NOTE | 2018-02-12 15:05 | PN- Gastroenterology ---
Assessment/Plan GI Assessment/Recommendations: ASSESSMENT: 1. Hematochezia. Likely diverticular bleeding. However in the setting of recent right-sided diverticulitis which is somewhat unusual must be concerned about underlying malignancy. There has been no further active lower GI blood loss. 2. Acute blood loss anemia 3. Leukocytosis now resolved ON Cipro and Flagyl 4. Right Sided Diverticulitis with Microperforation -- no longer with significant pain. RECOMMENDATIONS: 1. Monitor for signs of ongoing blood loss both luminal losses i.e. clinical signs of GI bleeding as well as laboratory signs of GI bleeding 2. Continue Cipro and Flagyl 3. If patient has increased bleeding which is clinically or hemodynamically significant with get CT angiogram 4. Will likely defer colonoscopy for 4-6 weeks given evidence of microperforation on initial CT scan. Would prefer that patient have adequate time for healing prior to introducing the scope as well as excess air which would submit the right side of the colon to increaseD pressure/barotrauma 5. Would Follow CBC daily Subjective Subjective: Patient has had no further lower GI bleeding. She has had dark, formed stool, suggestive of passage of old blood. Objective Vital Signs and I&Os Vital Signs Date Time Temp Pulse Resp B/P B/P Pulse O2 O2 Flow FiO2 Mean Ox Delivery Rate 02/12 1439 97.5 78 20 138/70 96 Room Air 02/12 1413 94 Room Air 02/12 0633 98.1 63 20 132/88 98 02/11 2253 98.3 71 16 134/78 94 Room Air 02/11 2029 97 Room Air 02/11 2001 98.4 65 20 158/76 95 Room Air Intake & Output 02/12 1600 02/12 0400 02/11 1600 02/11 0400 02/10 1600 02/10 0400 Intake Total 1000 520 Output Total 200 100 Balance 800 420 Intake, IV 700 300 Intake, Oral 300 220 Number 0 1 Bowel Movements Output, Urine 200 100 Patient 250 lb 250 lb Weight Physical Exam General Appearance: awake, comfortable Respiratory: normal breath sounds, lungs clear Cardiovascular: regular rate/rhythm, Normal S1 and S2. No rub, murmur or gallop. Abdomen: normal bowel sounds, soft, non-tender, no organomegaly Extremities: no edema Neurologic/Psychiatric: awake, alert, oriented x 3, normal mood/affect Skin: normal color, warm/dry Current Medications: Current Medications Sig/Arlen Start time Last Medication Dose Route Stop Time Status Admin Acetaminophen 650 MG Q6PRN PRN 02/11 0430 AC 02/11 PO 1938 Albuterol Sulfate 3 ML Q4P PRN 02/11 1330 AC 02/11 INH 2249 Albuterol Sulfate 2 PUF Q4-6 PRN PRN 02/11 0445 AC INH Ciprofloxacin 500 MG BID 02/11 0900 AC 02/12 PO 02/15 0859 0913 Dextrose/Sodium 1,000 ML Q13H 02/11 1900 AC 02/12 Chloride IV 0917 Furosemide 20 MG DAILY 02/11 0900 AC 02/12 PO 0913 Levothyroxine Sodium 0.3 MG DAILY AC 02/11 0700 AC 02/12 PO 0615 Metronidazole 500 MG TID 02/11 0445 AC 02/12 PO 1406 Sodium Chloride 1,000 ML Q8H 02/11 1600 DC 02/12 IV 02/12 0759 0224 Results Pertinent Lab Results: Laboratory Tests 02/11 02/11 0953 0147 Chemistry Sodium (137 - 145 mmol/L) 140 Potassium (3.5 - 5.1 mmol/L) 3.7 Chloride (98 - 107 mmol/L) 99 Carbon Dioxide (22 - 30 mmol/L) 28 Anion Gap (5 - 16) 14 BUN (7 - 17 mg/dL) 25 H Creatinine (0.5 - 1.0 mg/dL) 0.8 Estimated GFR (>60 ml/min) > 60 BUN/Creatinine Ratio (7 - 25 %) 31.3 H Glucose (65 - 99 mg/dL) 134 H Calcium (8.4 - 10.2 mg/dL) 9.1 Total Bilirubin (0.2 - 1.3 mg/dL) 0.6 AST (14 - 36 U/L) 21 ALT (9 - 52 U/L) 27 Alkaline Phosphatase (<127 U/L) 79 Total Protein (6.3 - 8.2 g/dL) 7.3 Albumin (3.5 - 5.0 g/dL) 3.7 Globulin (1.9 - 4.2 gm/dL) 3.6 Albumin/Globulin Ratio (1.1 - 2.2 %) 1.0 L Hematology CBC w Diff NO MAN DIFF REQ NO MAN DIFF REQ WBC (4.8 - 10.8 /CUMM) 10.6 12.7 H RBC (4.20 - 5.40 /CUMM) 3.50 L 3.87 L Hgb (12.0 - 16.0 G/DL) 9.7 L 10.7 L Hct (37 - 47 %) 29.6 L 32.1 L MCV (81.0 - 99.0 FL) 84.6 83.1 MCH (27.0 - 31.0 PG) 27.8 27.6 MCHC (33.0 - 37.0 G/DL) 32.8 L 33.3 RDW (11.5 - 14.5 %) 16.3 H 15.8 H Plt Count (130 - 400 /CUMM) 234 284 MPV (7.4 - 10.4 FL) 6.6 L 6.5 L Gran % (42.2 - 75.2 %) 69.4 77.7 H Lymphocytes % (20.5 - 51.1 %) 20.4 L 14.8 L Monocytes % (1.7 - 9.3 %) 6.5 4.9 Eosinophils % (0 - 5 %) 3.0 2.3 Basophils % (0.0 - 2.0 %) 0.7 0.3 Absolute Granulocytes (1.4 - 6.5 /CUMM) 7.4 H 9.8 H Absolute Lymphocytes (1.2 - 3.4 /CUMM) 2.2 1.9 Absolute Monocytes (0.10 - 0.60 /CUMM) 0.7 H 0.6 Absolute Eosinophils (0.0 - 0.7 /CUMM) 0.3 0.3 Absolute Basophils (0.0 - 0.2 /CUMM) 0.1 0
[2018-02-12 15:49] LABS: ABSOLUTE BASOPHIL COUNT 0.1 /CUMM (0.0-0.2); ABSOLUTE EOSINOPHIL COUNT 0.3 /CUMM (0.0-0.7); ABSOLUTE GRANULOCYTE CT 6.6 /CUMM (1.4-6.5); ABSOLUTE LYMPH COUNT 1.4 /CUMM (1.2-3.4); ABSOLUTE MONOCYTE COUNT 0.5 /CUMM (0.10-0.60); BASOPHIL % 0.6 % (0.0-2.0); EOSINOPHIL % 3.5 % (0-5); GRANULOCYTE % 74.1 % (42.2-75.2); HEMATOCRIT 29.5 % (37-47); MEAN CORPUSCULAR HGB 27.6 PG (27.0-31.0); MEAN CORPUSCULAR HGB CONC 32.9 G/DL (33.0-37.0); MEAN CORPUSCULAR VOLUME 83.8 FL (81.0-99.0); MEAN PLATELET VOLUME 6.6 FL (7.4-10.4); PLATELET COUNT 208 /CUMM (130-400); RBC DISTRIBUTION WIDTH 16.7 % (11.5-14.5); RED BLOOD CELL CT 3.52 /CUMM (4.20-5.40); WHITE BLOOD CELL COUNT 8.9 /CUMM (4.8-10.8)
[2018-02-12 22:22] VITALS: BP 140/80
[2018-02-13 07:03] VITALS: BP 150/86
--- NOTE | 2018-02-13 09:08 | PN- Housestaff ---
See Addendum Subjective Follow-up For: lower GI Bleed Subjective: No acute events overnight, afebrile. Patient states she is tolerating her clear liquid diet and is feeling hungry today. Patient states she had 3 BM yesterday, the first two were maroon colored, but the 3rd bowel was normal, did not appreciate any blood and was soft. Denies abdominal pain, nausea, vomiting, fever, night sweats, chills. Review of Systems Constitutional: Reports: see HPI. Objective Last 24 Hrs of Vital Signs/I&O Vital Signs Date Time Temp Pulse Resp B/P B/P Pulse O2 O2 Flow FiO2 Mean Ox Delivery Rate 02/13 0703 98.2 58 20 150/86 96 Room Air 02/12 2222 98.3 67 20 140/80 98 Room Air 02/12 2145 95 Room Air 02/12 1439 97.5 78 20 138/70 96 Room Air 02/12 1413 94 Room Air Intake & Output 02/13 1600 / 0800 02/13 0000 Intake Total 720 1735 Output Total Balance 720 1735 Intake, IV 600 525 Intake, Oral 120 1210 Number 2 Bowel Movements Physical Exam General Appearance: Alert, Oriented X3, Cooperative Cardiovascular: Regular Rate, Normal S1, Normal S2 Lungs: Clear to Auscultation, Normal Air Movement Abdomen: Normal Bowel Sounds, Soft, No Tenderness Assessment/Plan Assessment: This is a 62-year-old female with a past medical history significant for asthma, psoriasis, mitral valve prolapse, hypertension, hypothyroidism, and venous insufficiency who presents to the emergency department with a chief complaint Maroon colored stools starting yesterday around 3-4 PM. Problem List; 1. GI Bleed; H&H currently stable. 2. Recent diagnosis of diverticulitis with microperforation 3. History of Hypertension, asthma, hypothyroidism and venous insufficiency GI bleed with anemia-likely 2/2 diverticulosis - GI consult; continue cipro/flagyl for diverticulitis with microperforation; monitor for blood loss via clinical and laboratory findings -monitor H/H #Chronic medical issues: - TRC Evaluation - Continue home medications. DVT prophylaxis; Alps only Patient is full code Will discharge patient home today, she is tolerating regular diet has not been passing blood in her stool. Patient states she has Metronidazole and Ciprofloxacin at home from recent discharge and will complete 7 day course of ABx at home to complete a total course of 10days. Problem List: 1. Diverticulitis Pain Ratin Pain Location: n/a Pain Goal: Remain pain free Pain Plan: none Tomorrow's Labs & Rationales: none
--- NOTE | 2018-02-13 09:45 | Patient Discharge Instructions ---
Discharge Instructions General Discharge Information You were seen/treated for: Lower GI Bleed You had these procedures: No procedures were performed during admission Watch for these problems: Fever, chest pain, shortness of breath, bloody stools Special Instructions: Please complete antibiotics as directed, follow-up with PCP, follow-up with bleach chlorinator for colonoscopy Diet Continue normal diet: Yes Recommended Diet: High Fiber Activity Full Activity/No Limits: Yes Acute Coronary Syndrome Inclusion Criteria At DC or during hospital stay patient has or had the following: ACS DIAGNOSIS No Discharge Core Measures Meds if any: Prescribed or Continued at Discharge Meds if any: NOT Prescribed or Continued at Discharge Congestive Heart Failure Inclusion Criteria At DC or during hospital stay patient has or had the following: CHF DIAGNOSIS No Discharge Core Measures Meds if any: Prescribed or Continued at Discharge Meds if any: NOT Prescribed or Continued at Discharge Cerebrovascular accident Inclusion Criteria At DC or during hospital stay patient has or had the following: CVA/TIA Diagnosis No Discharge Core Measures Meds if any: Prescribed or Continued at Discharge Meds if any: NOT Prescribed or Continued at Discharge Venous thromboembolism Inclusion Criteria VTE Diagnosis No VTE Type NONE VTE Confirmed by (Test) NONE Discharge Core Measures - Per Current guidelines, there needs to be overlap - treatment for the first 5 days of Warfarin therapy. - If discharged on Warfarin prior to 5 days of - overlap therapy, the patient will need to be - assessed for post discharge needs including - *Post discharge parental anticoagulation - *Warfarin and/or parental anticoagulation education - *Follow up date to check INR post discharge At least 5 days overlap therapy as Inpatient No Meds if any: Prescribed or Continued at Discharge Note: Overlap Therapy is Warfarin and Anticoagulant Meds if any: NOT Prescribed or Continued at Discharge
[2018-02-13 11:07] LABS: ABSOLUTE BASOPHIL COUNT 0.1 /CUMM (0.0-0.2); ABSOLUTE EOSINOPHIL COUNT 0.3 /CUMM (0.0-0.7); ABSOLUTE GRANULOCYTE CT 5.8 /CUMM (1.4-6.5); ABSOLUTE LYMPH COUNT 1.4 /CUMM (1.2-3.4); ABSOLUTE MONOCYTE COUNT 0.4 /CUMM (0.10-0.60); BASOPHIL % 0.8 % (0.0-2.0); EOSINOPHIL % 3.6 % (0-5); GRANULOCYTE % 73.5 % (42.2-75.2); HEMATOCRIT 27.6 % (37-47); MEAN CORPUSCULAR HGB CONC 33.2 G/DL (33.0-37.0); MEAN CORPUSCULAR VOLUME 84.2 FL (81.0-99.0); PLATELET COUNT 169 /CUMM (130-400); RBC DISTRIBUTION WIDTH 16.1 % (11.5-14.5); RED BLOOD CELL CT 3.28 /CUMM (4.20-5.40); WHITE BLOOD CELL COUNT 7.9 /CUMM (4.8-10.8)
[2018-02-13 15:13] VITALS: BP 148/80
--- NOTE | 2018-02-13 17:11 | Discharge Summary ---
Visit Information Visit Dates Admission Date: 02/11/18 Discharge Date: 02/13/18 Hospital Course Course Attending Physician: Abel Shaw MD Primary Care Physician: Darvin Gee MD Hospital Course: This is a 62-year-old female with a past medical history significant for asthma, psoriasis, mitral valve prolapse, hypertension, hypothyroidism, and venous insufficiency who presents to the emergency department with a chief complaint Maroon colored stools which started on 02/11/18 around 3-4 PM. Patient was recently admitted on 02/01/2018 for diverticulitis. ED vitals: Temperature 98.2, heart rate 72, respiratory rate 16, blood pressure 128/75, O2 sat 96% on room air ED labs WBC 12.7, H/H 10.7/32.1, glucose 134 Imaging: No imaging performed during this admission CT abdominal pelvis on 01/31/2018-impression: There is focal pericolonic inflammation in the ascending colon in the setting of the diverticula, most suspicious for acute diverticulitis. There may be a few punctate foci of free air in this region from microperforation. ED course Patient was admitted for observation on general floor for GI bleed and diverticulitis with microperforation, kept n.p.o. GI consult was placed and patient was started on ciprofloxacin and Flagyl. Home medications were continued General medicine course Patient was started on clear liquid diet which she tolerated advance to full liquid diet, finally advance to regular diet which the patient was tolerating. Patient began to form normal stool, did not appreciate passed blood in her stool anymore. GI was consulted, who deferred colonoscopy for 6-4 weeks given the evidence of microperforation. Allergies: Coded Allergies: Sulfa (Sulfonamide Antibiotics) (Intermediate, HIVES 02/22/16) fluticasone (From ADVAIR DISKUS) (Intermediate, PNEUMONIA 02/22/16) lactose (Intermediate, GI UPSET 02/22/16) salmeterol (From ADVAIR DISKUS) (Intermediate, PNEUMONIA 02/22/16) pollen extracts (Mild, SINUS ISSUES 02/22/16) Disposition Summary Disposition Principal Diagnosis: Lower GI bleed Additional Diagnosis: Diverticulitis with microperforation Discharge Disposition: home or self care Discharge Instructions General Discharge Information Code Status: Full Code Patient's Diet: High-fiber diet Patient's Activity: As tolerated Follow-Up Instructions/Appts: Complete course of antibiotics metronidazole and ciprofloxacin as directed. Follow up with PCP, follow-up with GI for colonoscopy 4-6 weeks. Medications at Discharge Discharge Medications: Continue taking these medications: Levothyroxine Sodium (Synthroid) 300 MCG TABLET 1 Tablet ORAL DAILY Comments: Last Taken: 02/13/18 Time: 5AM Furosemide (Furosemide) 20 MG TABLET 1 Tablet ORAL DAILY Comments: Last Taken: 02/13/18 Time: 10AM Ciprofloxacin HCl (Cipro) 500 MG TABLET 1 Tablet ORAL TWICE DAILY Qty = 20 Instructions: . Comments: Last Taken: 02/13/18 Time: 10AM Metronidazole (Flagyl) 500 MG TABLET 1 Tablet ORAL THREE TIMES DAILY Qty = 30 Instructions: do not drink alcohol while taking this medication. Comments: Last Taken: 02/13/18 Time: 1:15PM Albuterol Sulfate (Proair Hfa) 90 MCG HFA.AER.AD 2 Puff Inhale through mouth EVERY 4-6 HOURS NEEDED as needed for ASTHMA Comments: DID NOT ADMINISTER IN HOSPITAL Albuterol Sulfate (Albuterol Sulfate) 0.63 MG/3 ML VIAL.NEB 1 Vial Inhale Solution DAILY as needed for ASTHMA Comments: Last Taken: 02/11/18 Time: 1150PM Copies To: Marlen SOTO,Darvin Brian Attending MD Review Statement Documenting Attending: Abel Shaw MD Other Findings: Agree with the above summary of care and plan upon discharge. OP follow up with GI.
== END 2018-02-13 19:15 ==
LOC: ERH 01:19 → 2NA 03:47 → ERHI 03:47 → ENRESERV 04:26 → 2NA 05:05 → ENPENDDIS 02-13 12:35 → ENTRNSPT 02-13 18:51 → 2NA 02-13 19:15 → EDTRNSPT 02-13 19:16 → EDTRNSPTSTS 02-13 19:16 → CMPTRNSPT 02-13 19:33
PROVIDERS: Internal Medicine; Pediatrics
DX: K57.81 Diverticulitis of intestine, part unspecified, with perforation and abscess with bleeding (principal); I34.1 Nonrheumatic mitral (valve) prolapse; J45.909 Unspecified asthma, uncomplicated; I10 Essential (primary) hypertension; E03.9 Hypothyroidism, unspecified; I87.2 Venous insufficiency (chronic) (peripheral); L40.9 Psoriasis, unspecified; D72.829 Elevated white blood cell count, unspecified; K76.0 Fatty (change of) liver, not elsewhere classified; D62 Acute posthemorrhagic anemia
CPT/HCPCS: 1263; 36415; 93005; 93010; G0378; J7042